=== PATIENT | female | born 1965 | race Caucasian/White ===

== ENCOUNTER → 2016-06-16 11:55 | Outpatient (CLI) | payer MEDICARE, BC ==
[2016-03-29 12:28] VITALS: BMI 34.2
[~2016-06-16 11:55] MED LIST: AMOX TR-K CLV 21 TAB PO; ASMANEX0.24 GM INH; ATIVAN0.5 MG PO; AVINZA60 MG PO; CHERATUSSIN AC473 ML PO; DESERYL100 MG PO; DICLOFENAC SODI50 MG PO; ED-SPAZ0.125 MG PO; EFFEXOR75 MG PO; EPIPEN0.3 MG/0.3 IM; FLEXERIL10 MG PO; NEURONTIN800 MG PO; NORCO 10/325 TA1 TA1 PO; NYSTATIN ORAL SU5 ML PO; OMEPRAZOLE40 MG PO; OXYCODONE HCL10 MG PO; PHENERGAN25 M1 PO; PREDNISONE20 MG PO; PRILOSEC20 MG PO; PROVENTIL HFA6.7 GM INH; RESTORIL22.5 MG PO; SOMA350 MG PO; STERAPRED DS 1210 MG PO; SYMBICORT 16010.2 GM INH; TRIAMCINOLONE A17 GM NASAL; TYLENOL 325 MG325 MG GT; VENTOLIN HFA18 GM INH; VIBRAMYCIN 100100 MG PO; ZOLOFT100 MG PO
== END | disposition home or self-care (01) ==
LOC: D.CT 11:30
DX: J18.9 Pneumonia, unspecified organism (principal)

== ENCOUNTER 2017-01-09 14:46 | Inpatient (IN) | payer MEDICARE, BC ==
[~2017-01-09] VITALS: Ht 172.7 cm; Wt 106.4 kg
[2017-01-10 12:34] VITALS: Ht 172.7 cm; Wt 106.4 kg
[2017-01-15 16:00] VITALS: BP 150/69
[2017-01-15] MEDS ORDERED: FLORAJEN3 CAPS460 MG PO (16:15)
[2017-01-15] MEDS ORDERED: NORVASC5 MG PO (16:20)
[2017-01-15] MEDS ORDERED: SINGULAIR10 MG PO (16:24)
[2017-01-15] MEDS ORDERED: LEVAQUIN750 MG PO (16:24)
[2017-01-15] MEDS ORDERED: MUCINEX DM ER1 EAC1 PO (16:24)
[2017-01-15] MEDS ORDERED: PREDNISONE10 MG PO (16:24)
== END 2017-01-15 18:38 | disposition home or self-care (01) | DRG 191 ==
LOC: OBSVTIME 14:46 → D.M2 14:46
PROVIDERS: ADMIT Family Medicine
PROC: 05HC33Z Insertion of Infusion Device into Left Basilic Vein, Percutaneous Approach (ICD-10-PCS; principal; 2017-01-12)
PROC: B54NZZA Ultrasonography of Left Upper Extremity Veins, Guidance (ICD-10-PCS; 2017-01-12)
DX: J44.1 Chronic obstructive pulmonary disease with (acute) exacerbation (principal); F17.203 Nicotine dependence unspecified, with withdrawal; B37.0 Candidal stomatitis; J45.901 Unspecified asthma with (acute) exacerbation; T38.0X5A Adverse effect of glucocorticoids and synthetic analogues, initial encounter; G89.29 Other chronic pain; K22.4 Dyskinesia of esophagus; K21.9 Gastro-esophageal reflux disease without esophagitis; R73.9 Hyperglycemia, unspecified; B37.3 Candidiasis of vulva and vagina

== ENCOUNTER 2017-09-17 18:54 | Emergency (ER) | payer MEDICARE ==
[2017-01-10 12:34] VITALS: BMI 34.5
[~2017-09-17 18:54] MED LIST changes: +FLORAJEN3 CAPS460 MG PO; +LEVAQUIN750 MG PO; +MUCINEX DM ER1 EAC1 PO; +NORVASC5 MG PO; +PREDNISONE10 MG PO; +SINGULAIR10 MG PO
== END 2017-09-17 20:43 | disposition home or self-care (01) ==
LOC: D.ER 18:54
DX: M54.16 Radiculopathy, lumbar region (principal)

== ENCOUNTER 2017-09-22 15:56 | Inpatient (IN) | payer MEDICARE ==
[~2017-09-22] VITALS: Ht 172.7 cm; Wt 108.9 kg
--- NOTE | ~2017-09-22 | CN ---
PATIENT NAME:SANDRA MYERS MEDICAL RECORD: [id number] : 61 LOCATION:D.MS Ojeda2238 ADMIT DATE: 09/22/17 ACCOUNT: [id number] CONSULTING PHYSICIAN: VICKI AVILEZ MD REFERRING PHYSICIAN: KATI LLAMAS DO DATE OF CONSULTATION: 09/23/2017 CONSULT REQUESTING PHYSICIAN: Kati Llamas DO REASON FOR CONSULTATION: Pneumonia, acute exacerbation of COPD, and asthma. HISTORY OF PRESENT ILLNESS: Ms. Myers is a 52-year-old female very well known to our service. The patient is sick for the last 2-3 days. She has worsening shortness of breath, came into the ER, found out the patient had pneumonia in right lower lobe. She is also having cough with greenish color sputum production. She hears herself wheezing. She is also having fever. REVIEW OF THE SYSTEMS: Mainly in the history of present illness. PAST MEDICAL HISTORY: 1. Asthma as a child. 2. COPD. 3. Dyspnea. 4. History of gastritis. 5. Depression. 6. History of recurrent bronchitis. The workup in the past was negative. PAST SURGICAL HISTORY: 1. She had T&A. 2. Hysterectomy. 3. Right wrist surgery. 4. Tendon release surgery. ALLERGIES: There are no known drug allergies. MEDICATIONS: Cinnamon was reviewed. PERSONAL AND SOCIAL HISTORY: The patient is an ex-smoker. She is nondrinker. FAMILY HISTORY: Noncontributory. PHYSICAL EXAMINATION: GENERAL: Now, the patient is lying comfortably in bed. She is not in acute distress. VITAL SIGNS: The pulse ox is 96% on nasal cannula oxygen. HEENT: Conjunctivae are pink. Sclerae are not icteric. NECK: Neck is supple. No JVD. CHEST: There is prolonged expiration with wheezing. There is a crackle at the right base. HEART: Rhythm regular. Normal sound. No murmur. ABDOMEN: Abdomen is soft. Bowel sounds present. No hepatosplenomegaly. RECTAL: Deferred. EXTREMITIES: No cyanosis. No clubbing. No pedal edema. SKIN: The skin is warm. Normal turgor. CENTRAL NERVOUS SYSTEM: The patient is awake and alert. There is no obvious CONSULT REPORT [id number] SANDRA MYERS cranial nerve abnormality. The gait was not tested. CHEST RADIOGRAPH: On 09/22/2017, there is patchy opacity in the infrahilar region and the lung bases. OTHER LABORATORY DATA: CBC; WBC 9.9, hemoglobin 14.5, hematocrit 42, and platelet count is 219. Chemistry; sodium 142, potassium 4.2, BUN is 15, creatinine is 1.1, glucose 232. IMPRESSION: 1. Acute exacerbation of COPD. 2. Acute hypoxic respiratory failure. 3. Pneumonia, right lower lobe. 4. Asthma-COPD overlap syndrome. 5. Ex-smoker. RECOMMENDATION: 1. Continue supplemental oxygen. 2. Albuterol and ipratropium nebulizer q. 4 hourly, albuterol nebulizer q. 2 hourly p.r.n. Start Brovana and budesonide nebulizer. Adjust the dose of methylprednisolone IV. Continue Rocephin and Zithromax IV. 3. Singulair 10 mg daily. 4. Mucinex. 5. I will check the CT scan of the chest to rule out any obstructive cause for pneumonia. Dr. Llamas, thank you for involving me in the care of Ms. Myers. TRANSINT:[id number] Voice Confirmation ID: [id number] DOCUMENT ID: [id number] VICKI AVILEZ MD at 1806 CC: LEIF CUNNINGHAM DO [id number] DICTATION DATE: 09/23/17 1301 WEBSITE PROJECT MANAGER: 09/23/17 1325 DIS IN 09/25/17 [address] [place] [address]
[2017-09-22 16:49] LABS: BASOPHILS 0.6 % (0-2); EOSINOPHILS 3.5 % (0-7); HEMATOCRIT 43.4 % (36.0-48.0); IMMATURE GRANULOCYTES 0.4 % (0-5); MCH 31.3 pg (26.0-34.0); MCHC 34.6 g/dL (31.0-37.0); MCV 90.6 fL (80.0-100.0); MEAN PLATELET VOLUME 10.8 fL (7.4-10.4); MONOCYTES 5.5 % (2-11); PLATELET COUNT 230 10x3/uL (130-400); RBC 4.79 10x6/uL (4.00-5.40); RDW 13.5 % (11.5-14.5)
[2017-09-22 17:08] LABS: ALBUMIN 3.8 g/dL (3.4-5.0); BILIRUBIN - TOTAL 0.31 mg/dL (0.2-1.3); CALCIUM 9.1 mg/dL (8.5-10.1); CARBON DIOXIDE 24.2 mmol/L (21.0-32.0); CREATININE - SERUM 1.1 mg/dL (0.6-1.3); PROTEIN - SERUM 7.3 g/dL (6.4-8.2)
[2017-09-22 17:14] LABS: ANION GAP 15.6 mmol/L (8-16); POTASSIUM - SERUM 3.8 mmol/L (3.5-5.1)
[2017-09-22 17:41] LABS: APPEARANCE CLEAR (CLEAR); BILIRUBIN NEGATIVE (NEGATIVE); COLOR YELLOW (YELLOW); GLUCOSE 1000 mg/dL (NEGATIVE); KETONE NEGATIVE (NEGATIVE); NITRITE NEGATIVE (NEGATIVE); PROTEIN NEGATIVE (NEGATIVE); UROBILINOGEN NORMAL (NORMAL)
[2017-09-22 17:42] LABS: BACTERIA FEW /hpf (NONE SEEN); EPITHELIAL CELLS OCC /hpf (0-5); RED CELLS - URINE OCC /hpf (0-5); WHITE CELLS - URINE 0-5 /hpf (0-5)
[2017-09-23 04:45] LABS: BASOPHILS 0.1 % (0-2); EOSINOPHILS 0 % (0-7); HEMOGLOBIN 14.5 g/dL (12-16); IMMATURE GRANULOCYTES 0.4 % (0-5); MCH 31.2 pg (26.0-34.0); MCHC 34.5 g/dL (31.0-37.0); MCV 90.3 fL (80.0-100.0); MEAN PLATELET VOLUME 10.9 fL (7.4-10.4); MONOCYTES 0.9 % (2-11); NEUTROPHILS 85.6 % (40-80); PLATELET COUNT 219 10x3/uL (130-400); RBC 4.65 10x6/uL (4.00-5.40); RDW 13.3 % (11.5-14.5); WBC 9.9 10x3/uL (4.8-10.8)
[2017-09-23 04:57] LABS: ALBUMIN 3.6 g/dL (3.4-5.0); BILIRUBIN - TOTAL 0.22 mg/dL (0.2-1.3); CALCIUM 9.4 mg/dL (8.5-10.1); CARBON DIOXIDE 25.2 mmol/L (21.0-32.0); CREATININE - SERUM 1.1 mg/dL (0.6-1.3); POTASSIUM - SERUM 4.2 mmol/L (3.5-5.1); PROTEIN - SERUM 7.1 g/dL (6.4-8.2)
[2017-09-24 02:11] VITALS: BP 118/62; BMI 36.5
[2017-09-24 04:00] VITALS: BP 112/64
[2017-09-24 05:52] LABS: BASOPHILS 0.1 % (0-2); EOSINOPHILS 0 % (0-7); HEMATOCRIT 41.5 % (36.0-48.0); IMMATURE GRANULOCYTES 0.3 % (0-5); LYMPHOCYTES 11.7 % (15-50); MCHC 33.7 g/dL (31.0-37.0); MCV 91.8 fL (80.0-100.0); MEAN PLATELET VOLUME 10.8 fL (7.4-10.4); MONOCYTES 2.5 % (2-11); NEUTROPHILS 85.4 % (40-80); PLATELET COUNT 251 10x3/uL (130-400); RBC 4.52 10x6/uL (4.00-5.40); RDW 13.7 % (11.5-14.5)
[2017-09-24 06:00] LABS: WBC 14.8 10x3/uL (4.8-10.8)
[2017-09-24 06:23] LABS: ALBUMIN 3.7 g/dL (3.4-5.0); ANION GAP 14.4 mmol/L (8-16); BILIRUBIN - TOTAL 0.23 mg/dL (0.2-1.3); CALCIUM 8.9 mg/dL (8.5-10.1); CARBON DIOXIDE 27.1 mmol/L (21.0-32.0); CREATININE - SERUM 1.1 mg/dL (0.6-1.3); POTASSIUM - SERUM 4.5 mmol/L (3.5-5.1); PROTEIN - SERUM 7.2 g/dL (6.4-8.2)
[2017-09-24 08:35] VITALS: BP 157/75
[2017-09-24 12:49] VITALS: BP 148/64
[2017-09-24 14:04] VITALS: Ht 172.7 cm; Wt 108.9 kg
[2017-09-24 15:44] VITALS: BP 123/51
[2017-09-24 19:42] VITALS: BP 106/56
[2017-09-25 04:30] VITALS: BP 113/50
[2017-09-25 05:53] LABS: BASOPHILS 0 % (0-2); EOSINOPHILS 0 % (0-7); HEMATOCRIT 40.2 % (36.0-48.0); HEMOGLOBIN 13.6 g/dL (12-16); IMMATURE GRANULOCYTES 1.1 % (0-5); LYMPHOCYTES 11.2 % (15-50); MCHC 33.8 g/dL (31.0-37.0); MCV 91.6 fL (80.0-100.0); MEAN PLATELET VOLUME 10.7 fL (7.4-10.4); MONOCYTES 5.3 % (2-11); NEUTROPHILS 82.4 % (40-80); PLATELET COUNT 235 10x3/uL (130-400); RBC 4.39 10x6/uL (4.00-5.40); RDW 13.5 % (11.5-14.5); WBC 12.8 10x3/uL (4.8-10.8)
[2017-09-25 06:52] LABS: ALBUMIN 3.7 g/dL (3.4-5.0); ANION GAP 11.5 mmol/L (8-16); BILIRUBIN - TOTAL 0.14 mg/dL (0.2-1.3); CALCIUM 9.1 mg/dL (8.5-10.1); CREATININE - SERUM 1.1 mg/dL (0.6-1.3); POTASSIUM - SERUM 4.5 mmol/L (3.5-5.1); PROTEIN - SERUM 6.6 g/dL (6.4-8.2)
[2017-09-25 08:44] VITALS: BP 140/75
[2017-09-25 12:57] VITALS: BP 139/80
[2017-09-25] MEDS ORDERED: DIFLUCAN100 MG PO (14:17)
[2017-09-25] MEDS ORDERED: ZITHROMAX500 MG PO (14:21)
[2017-09-25] MEDS ORDERED: OMNICEF300 MG PO (14:22)
[2017-09-25] MEDS ORDERED: PREDNISONE10 MG PO (14:23)
[2017-09-25 16:54] VITALS: BP 101/51
== END 2017-09-25 16:30 | disposition home or self-care (01) | DRG 193 ==
LOC: D.ER 15:56 → D.EDHOLD 18:07 → D.MS 18:07
PROVIDERS: Family Medicine; Physician Assistant Medical
DX: J18.9 Pneumonia, unspecified organism (principal); J96.01 Acute respiratory failure with hypoxia; J44.0 Chronic obstructive pulmonary disease with (acute) lower respiratory infection; J44.1 Chronic obstructive pulmonary disease with (acute) exacerbation; M35.1 Other overlap syndromes; R73.9 Hyperglycemia, unspecified; K21.9 Gastro-esophageal reflux disease without esophagitis; G89.29 Other chronic pain

== ENCOUNTER 2017-11-02 13:15 | Inpatient (IN) | payer MEDICARE ==
[~2017-11-02] VITALS: Ht 175.3 cm; Wt 109.3 kg
[2017-11-02] VITALS (9 sets, daily range): BP systolic 96–127; BP diastolic 55–89; BMI 35.8
--- NOTE | ~2017-11-02 | OP ---
PATIENT NAME: SANDRA LYNNE MEDICAL RECORD: [id number] :61 LOCATION:D.MS Ojeda2224 ADMISSION DATE:11/02/17 SURGEON: VAMSI DELGADO MD DATE OF OPERATION: 11/05/2017 PREOPERATIVE DIAGNOSES: Left proximal humerus fracture -- greater tuberosity avulsion and valgus impacted humeral head. POSTOPERATIVE DIAGNOSES: Left proximal humerus fracture -- greater tuberosity avulsion and valgus impacted humeral head. PROCEDURE: Open reduction internal fixation of the above. SURGEON: Vamsi Delgado MD ANESTHESIA: General. INTRAOPERATIVE COMPLICATIONS: None. SUMMARY OF PATHOLOGIC FINDINGS: The patient did have a valgus impaction with superior displacement of the greater tuberosity. This was all fixed under fluoroscopic control and stabilized with internal fixation. Internal fixation used is the Michael periarticular VariAx system. OPERATIVE SUMMARY IN DETAIL: After obtaining the appropriate preoperative orthopedic surgery consent as well as anesthetic consultation, evaluation and clearance, the patient was brought to the operating room and placed on the operating room table in supine position. After general laryngeal mask airway was administered, the patient was placed in beach chair position. All pressure points were well padded. She was held firmly to the operating table using vacuum pack suction system. Left upper extremity and shoulder were then prepped and draped in routine sterile fashion. The arm was held in the Trimano arm holding device. Planned incision was drawn in the deltopectoral interval. Deltopectoral interval was taken down. The cephalic vein was identified and protected throughout the case. This was then dissected down to clavipectoral fascia. Deltoid was then gently retracted laterally. The fracture was identified. At this point, by and large part, without disturbing the periosteum, the fracture was reduced as seen on AP and lateral planes. Provisional 6.2 pin was put in for provisional fixation. The Michael periarticular plate was then put into place and the fracture was fixed with a combination of both compression and locking screws. Serial and sequential drill and fill technique was utilized. Final radiographs were taken and submitted on AP and lateral planes for radiologist review. Further irrigation was then followed by closure of the deltopectoral interval with #1 Vicryl followed by 2-0 Vicryl and skin crista. Sterile dressings were applied. The patient was awakened and taken to the recovery room in stable condition. All final needle and sponge counts were correct. TRANSINT:[id number] Voice Confirmation ID: [id number] DOCUMENT ID: [id number] 11/09/2017 Edited to correct date of service, dmm. OPERATIVE REPORT [id number] SANDRA LYNNE MD, VAMSI GRACIA at 1606 CC: [id number] DICTATION DATE: 11/06/17 1132 ADVERTISING PRODUCTION MANAGER: 11/06/17 1147 DIS IN 11/07/17 [address] [place] [address]
[~2017-11-02 13:15] MED LIST changes: +DIFLUCAN100 MG PO; +OMNICEF300 MG PO; +ZITHROMAX500 MG PO
[2017-11-02] MEDS ORDERED: HYDROCODONE-APA1 TAB PO (13:21)
[2017-11-02 17:01] LABS: BASOPHILS 0.4 % (0-2); EOSINOPHILS 1.2 % (0-7); HEMATOCRIT 42.2 % (36.0-48.0); HEMOGLOBIN 14.5 g/dL (12-16); IMMATURE GRANULOCYTES 0.6 % (0-5); LYMPHOCYTES 22.4 % (15-50); MCH 31.6 pg (26.0-34.0); MCHC 34.4 g/dL (31.0-37.0); MCV 91.9 fL (80.0-100.0); MEAN PLATELET VOLUME 10.8 fL (7.4-10.4); MONOCYTES 8.7 % (2-11); NEUTROPHILS 66.7 % (40-80); PLATELET COUNT 200 10x3/uL (130-400); RBC 4.59 10x6/uL (4.00-5.40); RDW 13.6 % (11.5-14.5); WBC 11.6 10x3/uL (4.8-10.8)
[2017-11-02 17:52] LABS: APTT 20.2 SECONDS (22.8-39.4); INR 0.92 (0.85-1.17)
[2017-11-02 18:13] LABS: ALBUMIN 3.9 g/dL (3.4-5.0); ALKALINE PHOSPHATASE 88 U/L (46-116); ALT (SGPT) 44 U/L (10-68); BILIRUBIN - TOTAL 0.33 mg/dL (0.2-1.3); CALC OSMOLALITY 281 mosm/kg (275-300); CALCIUM 9.1 mg/dL (8.5-10.1); CARBON DIOXIDE 28.7 mmol/L (21.0-32.0); CHLORIDE - SERUM 105 mmol/L (98-107); CREATININE - SERUM 0.5 mg/dL (0.6-1.3); SODIUM 141 mmol/L (136-145); UREA NITROGEN 15 mg/dL (7-18); eGFR NON AFRICAN AMERICAN > 90 mL/min (90-120)
[2017-11-02 18:17] LABS: GLUCOSE 107 mg/dL (74-106)
[2017-11-03 00:41] VITALS: BP 119/77
[2017-11-03 04:28] VITALS: BP 120/57
[2017-11-03 07:30] LABS: ALBUMIN 3.4 g/dL (3.4-5.0); ANION GAP 13.6 mmol/L (8-16); BILIRUBIN - TOTAL 0.2 mg/dL (0.2-1.3); CALCIUM 8.4 mg/dL (8.5-10.1); CARBON DIOXIDE 26.9 mmol/L (21.0-32.0); POTASSIUM - SERUM 4.5 mmol/L (3.5-5.1); PROTEIN - SERUM 6.1 g/dL (6.4-8.2)
[2017-11-03 07:32] LABS: CREATININE - SERUM 0.9 mg/dL (0.6-1.3)
[2017-11-03 07:42] LABS: BASOPHILS 0.3 % (0-2); EOSINOPHILS 1.6 % (0-7); HEMATOCRIT 39.5 % (36.0-48.0); HEMOGLOBIN 13.3 g/dL (12-16); IMMATURE GRANULOCYTES 0.3 % (0-5); MCH 31.1 pg (26.0-34.0); MCHC 33.7 g/dL (31.0-37.0); MCV 92.3 fL (80.0-100.0); MEAN PLATELET VOLUME 10.4 fL (7.4-10.4); MONOCYTES 9.6 % (2-11); NEUTROPHILS 60.2 % (40-80); PLATELET COUNT 198 10x3/uL (130-400); RBC 4.28 10x6/uL (4.00-5.40); RDW 13.7 % (11.5-14.5); WBC 9.7 10x3/uL (4.8-10.8)
[2017-11-03 08:08] VITALS: BP 117/71
[2017-11-03 10:52] VITALS: Ht 175.3 cm; Wt 109.3 kg
[2017-11-03 15:15] VITALS: BP 117/72
[2017-11-03 20:25] VITALS: BP 107/66
[2017-11-04 05:48] VITALS: BP 136/71
[2017-11-04 06:54] LABS: BASOPHILS 0.4 % (0-2); EOSINOPHILS 1.7 % (0-7); HEMATOCRIT 37.8 % (36.0-48.0); HEMOGLOBIN 12.4 g/dL (12-16); IMMATURE GRANULOCYTES 0.4 % (0-5); LYMPHOCYTES 20.6 % (15-50); MCH 30.7 pg (26.0-34.0); MCHC 32.8 g/dL (31.0-37.0); MCV 93.6 fL (80.0-100.0); MEAN PLATELET VOLUME 10.4 fL (7.4-10.4); NEUTROPHILS 67.9 % (40-80); PLATELET COUNT 165 10x3/uL (130-400); RBC 4.04 10x6/uL (4.00-5.40); RDW 13.8 % (11.5-14.5)
[2017-11-04 07:44] LABS: ALKALINE PHOSPHATASE 66 U/L (46-116); ALT (SGPT) 37 U/L (10-68); BILIRUBIN - TOTAL 0.32 mg/dL (0.2-1.3); CALC OSMOLALITY 280 mosm/kg (275-300); CARBON DIOXIDE 30.6 mmol/L (21.0-32.0); CHLORIDE - SERUM 106 mmol/L (98-107); CREATININE - SERUM 0.8 mg/dL (0.6-1.3); GLUCOSE 117 mg/dL (74-106); POTASSIUM - SERUM 4.3 mmol/L (3.5-5.1); PROTEIN - SERUM 6.1 g/dL (6.4-8.2); SODIUM 140 mmol/L (136-145); UREA NITROGEN 15 mg/dL (7-18); eGFR NON AFRICAN AMERICAN 79 mL/min (90-120)
[2017-11-04 07:46] VITALS: BP 108/77
[2017-11-04 11:38] VITALS: BP 113/79
[2017-11-04 15:43] VITALS: BP 134/73
[2017-11-04 20:00] VITALS: BP 138/84
[2017-11-05] VITALS: BP 124/76
[2017-11-05 04:00] VITALS: BP 131/66
[2017-11-05 05:24] LABS: BASOPHILS 0.2 % (0-2); EOSINOPHILS 0.8 % (0-7); HEMATOCRIT 38.5 % (36.0-48.0); HEMOGLOBIN 12.9 g/dL (12-16); IMMATURE GRANULOCYTES 0.3 % (0-5); LYMPHOCYTES 11.1 % (15-50); MCH 30.9 pg (26.0-34.0); MCHC 33.5 g/dL (31.0-37.0); MCV 92.3 fL (80.0-100.0); MEAN PLATELET VOLUME 10.3 fL (7.4-10.4); MONOCYTES 5.5 % (2-11); NEUTROPHILS 82.1 % (40-80); PLATELET COUNT 178 10x3/uL (130-400); RBC 4.17 10x6/uL (4.00-5.40); RDW 13.7 % (11.5-14.5)
[2017-11-05 05:33] LABS: WBC 11.1 10x3/uL (4.8-10.8)
[2017-11-05 05:42] LABS: ALBUMIN 3.3 g/dL (3.4-5.0); ALKALINE PHOSPHATASE 67 U/L (46-116); ALT (SGPT) 34 U/L (10-68); BILIRUBIN - TOTAL 0.36 mg/dL (0.2-1.3); CALC OSMOLALITY 272 mosm/kg (275-300); CALCIUM 8.9 mg/dL (8.5-10.1); CARBON DIOXIDE 30.2 mmol/L (21.0-32.0); CHLORIDE - SERUM 101 mmol/L (98-107); CREATININE - SERUM 0.7 mg/dL (0.6-1.3); GLUCOSE 133 mg/dL (74-106); POTASSIUM - SERUM 4.1 mmol/L (3.5-5.1); PROTEIN - SERUM 6.6 g/dL (6.4-8.2); SODIUM 136 mmol/L (136-145); eGFR NON AFRICAN AMERICAN > 90 mL/min (90-120)
[2017-11-05 05:45] LABS: UREA NITROGEN 10 mg/dL (7-18)
[2017-11-05 08:42] VITALS: BP 137/777
[2017-11-05 11:09] VITALS: BP 144/77
[2017-11-05 18:23] VITALS: BP 147/64
[2017-11-06] VITALS (7 sets, daily range): BP systolic 110–153; BP diastolic 56–98
[2017-11-06 04:44] LABS: APPEARANCE CLEAR (CLEAR); BILIRUBIN NEGATIVE (NEGATIVE); COLOR YELLOW (YELLOW); GLUCOSE NEGATIVE (NEGATIVE); KETONE NEGATIVE (NEGATIVE); NITRITE NEGATIVE (NEGATIVE); PROTEIN NEGATIVE (NEGATIVE); SPECIFIC GRAVITY 1.015 (1.005-1.020); UROBILINOGEN NORMAL (NORMAL)
[2017-11-06 04:52] LABS: BACTERIA FEW /hpf (NONE SEEN); EPITHELIAL CELLS RARE /hpf (0-5); WHITE CELLS - URINE RARE /hpf (0-5)
[2017-11-06 05:52] LABS: BASOPHILS 0.3 % (0-2); HEMATOCRIT 39.7 % (36.0-48.0); IMMATURE GRANULOCYTES 0.4 % (0-5); LYMPHOCYTES 16.8 % (15-50); MCH 30.8 pg (26.0-34.0); MCHC 32.7 g/dL (31.0-37.0); MCV 94.1 fL (80.0-100.0); MEAN PLATELET VOLUME 10.5 fL (7.4-10.4); MONOCYTES 11.7 % (2-11); NEUTROPHILS 69.8 % (40-80); PLATELET COUNT 172 10x3/uL (130-400); RBC 4.22 10x6/uL (4.00-5.40); RDW 14.1 % (11.5-14.5); WBC 9.2 10x3/uL (4.8-10.8)
[2017-11-06 06:42] LABS: ALBUMIN 3.3 g/dL (3.4-5.0); ALKALINE PHOSPHATASE 70 U/L (46-116); ALT (SGPT) 35 U/L (10-68); CALC OSMOLALITY 275 mosm/kg (275-300); CALCIUM 8.6 mg/dL (8.5-10.1); CHLORIDE - SERUM 100 mmol/L (98-107); CREATININE - SERUM 0.7 mg/dL (0.6-1.3); GLUCOSE 125 mg/dL (74-106); SODIUM 138 mmol/L (136-145); UREA NITROGEN 10 mg/dL (7-18); eGFR NON AFRICAN AMERICAN > 90 mL/min (90-120)
[2017-11-07 03:50] VITALS: BP 95/60
[2017-11-07 05:52] LABS: BASOPHILS 0.1 % (0-2); EOSINOPHILS 1.8 % (0-7); HEMATOCRIT 33.8 % (36.0-48.0); HEMOGLOBIN 11.2 g/dL (12-16); IMMATURE GRANULOCYTES 0.3 % (0-5); LYMPHOCYTES 22.1 % (15-50); MCH 30.9 pg (26.0-34.0); MCHC 33.1 g/dL (31.0-37.0); MCV 93.1 fL (80.0-100.0); MEAN PLATELET VOLUME 10.4 fL (7.4-10.4); MONOCYTES 12.1 % (2-11); NEUTROPHILS 63.6 % (40-80); PLATELET COUNT 154 10x3/uL (130-400); RBC 3.63 10x6/uL (4.00-5.40); RDW 13.8 % (11.5-14.5); WBC 7.6 10x3/uL (4.8-10.8)
[2017-11-07 06:37] LABS: ALBUMIN 2.8 g/dL (3.4-5.0); ALKALINE PHOSPHATASE 49 U/L (46-116); ALT (SGPT) 28 U/L (10-68); BILIRUBIN - TOTAL 0.37 mg/dL (0.2-1.3); CALC OSMOLALITY 275 mosm/kg (275-300); CALCIUM 8.3 mg/dL (8.5-10.1); CARBON DIOXIDE 29.2 mmol/L (21.0-32.0); CHLORIDE - SERUM 103 mmol/L (98-107); CREATININE - SERUM 0.7 mg/dL (0.6-1.3); GLUCOSE 109 mg/dL (74-106); POTASSIUM - SERUM 3.5 mmol/L (3.5-5.1); PROTEIN - SERUM 6.1 g/dL (6.4-8.2); SODIUM 138 mmol/L (136-145); UREA NITROGEN 10 mg/dL (7-18); eGFR NON AFRICAN AMERICAN > 90 mL/min (90-120)
[2017-11-07 06:48] VITALS: BP 104/62
[2017-11-07] MEDS ORDERED: MEPERIDINE HCL50 MG PO (10:16)
== END 2017-11-07 13:06 | disposition home or self-care (01) | DRG 493 ==
LOC: D.ER 13:15 → D.EDHOLD 16:29 → D.MS 16:29
PROVIDERS: Family Medicine
PROC: 05HB33Z Insertion of Infusion Device into Right Basilic Vein, Percutaneous Approach (ICD-10-PCS; principal; 2017-11-02)
PROC: B54MZZA Ultrasonography of Right Upper Extremity Veins, Guidance (ICD-10-PCS; 2017-11-02)
PROC: 0PSD04Z Reposition Left Humeral Head with Internal Fixation Device, Open Approach (ICD-10-PCS; 2017-11-05)
DX: S42.252A Displaced fracture of greater tuberosity of left humerus, initial encounter for closed fracture (principal); F17.203 Nicotine dependence unspecified, with withdrawal; J44.1 Chronic obstructive pulmonary disease with (acute) exacerbation; W01.0XXA Fall on same level from slipping, tripping and stumbling without subsequent striking against object, initial encounter; F41.9 Anxiety disorder, unspecified; K21.9 Gastro-esophageal reflux disease without esophagitis

== ENCOUNTER → 2017-11-27 15:19 | Outpatient (CLI) | payer MEDICARE ==
[2017-11-03 10:52] VITALS: BMI 35.7
[~2017-11-27 15:19] MED LIST changes: +BENZONATATE200 MG PO; +BREO ELLIPTA 21 EACH; +CARDIZEM60 MG PO; +FLUTICASONE PRO16 GM NASAL; +HYDROCODONE-APA1 TAB PO; +INVOKANA100 MG PO; +LYRICA200 MG PO; +MEPERIDINE HCL50 MG PO; +MIRALAX17 GM PO; +ZOFRAN4 MG PO
== END | disposition home or self-care (01) ==
LOC: D.MRI 11-03 07:00
DX: M54.16 Radiculopathy, lumbar region (principal)

== ENCOUNTER 2017-11-28 22:01 | Observation (INO) | payer MEDICARE ==
[~2017-11-28] VITALS: Ht 175.3 cm; Wt 109.1 kg
--- NOTE | ~2017-11-28 | MORECARE ---
CASE MANAGEMENT DISCHARGE SUMMARY PATIENT: SANDRA LYNNE UNIT: [id number] ADM DATE: 11/29/17 AGE: 52 : 61 SEX: F ROOM/BED: D.2237 AUTHOR: CASE, FREIGHT DISPATCHER PHYSICIAN: REFERRING PHYSICIAN: ANNETTE SULTANA MD DATE OF SERVICE: 11/29/17 Discharge Plan Patient Name: SANDRA LYNNE Facility: [facility]:[place] : 1965 Planned Disposition: Home Anticipated Discharge Date: 11/30/17 Discharge Date: Expected LOS: 1 Initial Reviewer: [email or web address] Initial Review Date: 11/30/2017 Generated: 11/30/17 8:32 am Coverage Notice Reviewer: [id number] - Airam Block Notice Issued Date-Time: 11/30/2017 7:27 Notice Type: Medicare Outpatient Observation Notice Notice Delivered To: Patient Relationship to Patient: Self Automatic Toe Laster Name: Delivery Method: HAND - Hand Delivered Maranda Days: Prior Verbal Notification: Recipient Understood Notice: Yes Recipient Signature: Yes Med Rec Note Co-signed by Attending: Coverage Notice Comment: LASHAWN explained, signed, copy given, original placed in MR Patient Name: SANDRA LYNNE Page [phone] All edits/amendments must be made on the electronic document DICTATION DATE: 11/30/17730 CONTRACTING ENGINEER: 11/30/17730 RPT#: [id number] DC DATE: STATUS: ADM IN [address] [place] [address] END OF REPORT
[~2017-11-28 22:01] MED LIST changes: -BENZONATATE200 MG PO; -BREO ELLIPTA 21 EACH; -CARDIZEM60 MG PO; -FLUTICASONE PRO16 GM NASAL; -INVOKANA100 MG PO; -LYRICA200 MG PO; -MIRALAX17 GM PO; -ZOFRAN4 MG PO
[2017-11-28 22:43] LABS: BASOPHILS 0.2 % (0-2); EOSINOPHILS 0.8 % (0-7); HEMATOCRIT 43.7 % (36.0-48.0); HEMOGLOBIN 14.6 g/dL (12-16); IMMATURE GRANULOCYTES 0.2 % (0-5); LYMPHOCYTES 7.1 % (15-50); MCH 30.9 pg (26.0-34.0); MCHC 33.4 g/dL (31.0-37.0); MCV 92.4 fL (80.0-100.0); MEAN PLATELET VOLUME 10.2 fL (7.4-10.4); MONOCYTES 4.4 % (2-11); NEUTROPHILS 87.3 % (40-80); PLATELET COUNT 167 10x3/uL (130-400); RBC 4.73 10x6/uL (4.00-5.40); RDW 13.7 % (11.5-14.5); WBC 10.7 10x3/uL (4.8-10.8)
[2017-11-28 23:02] LABS: ALBUMIN 3.7 g/dL (3.4-5.0); ANION GAP 13.3 mmol/L (8-16); BILIRUBIN - TOTAL 0.41 mg/dL (0.2-1.3); CALCIUM 8.9 mg/dL (8.5-10.1); CARBON DIOXIDE 27.8 mmol/L (21.0-32.0); CREATININE - SERUM 0.9 mg/dL (0.6-1.3); POTASSIUM - SERUM 4.1 mmol/L (3.5-5.1); PROTEIN - SERUM 7.2 g/dL (6.4-8.2)
[2017-11-28 23:27] LABS: APPEARANCE CLEAR (CLEAR); BILIRUBIN NEGATIVE (NEGATIVE); COLOR YELLOW (YELLOW); GLUCOSE 250 mg/dL (NEGATIVE); KETONE NEGATIVE (NEGATIVE); NITRITE NEGATIVE (NEGATIVE); PROTEIN NEGATIVE (NEGATIVE); SPECIFIC GRAVITY 1.005 (1.005-1.020); UROBILINOGEN NORMAL (NORMAL)
[2017-11-29] VITALS (7 sets, daily range): BP systolic 106–174; BP diastolic 56–98; Ht 175.3 cm; Wt 109.1 kg
[2017-11-29] MEDS ORDERED: HYDROCODONE-APA1 TAB PO (01:20)
[2017-11-29] MEDS ORDERED: ZOFRAN4 MG PO (01:20)
[2017-11-29] MEDS ORDERED: INVOKANA100 MG PO (06:15)
[2017-11-29] MEDS ORDERED: LYRICA200 MG PO (06:15)
[2017-11-29] MEDS ORDERED: BREO ELLIPTA 21 EACH (06:15)
[2017-11-29] MEDS ORDERED: FLUTICASONE PRO16 GM NASAL (06:16)
[2017-11-30 00:30] VITALS: BP 144/84
[2017-11-30 04:30] VITALS: BP 154/82
[2017-11-30 06:43] LABS: BASOPHILS 0.3 % (0-2); EOSINOPHILS 7.2 % (0-7); HEMATOCRIT 36.1 % (36.0-48.0); HEMOGLOBIN 11.7 g/dL (12-16); LYMPHOCYTES 40.3 % (15-50); MCH 30.6 pg (26.0-34.0); MCHC 32.4 g/dL (31.0-37.0); MEAN PLATELET VOLUME 10.1 fL (7.4-10.4); MONOCYTES 12.7 % (2-11); NEUTROPHILS 39.5 % (40-80); RBC 3.82 10x6/uL (4.00-5.40); RDW 14.2 % (11.5-14.5)
[2017-11-30 06:54] LABS: MCV 94.5 fL (80.0-100.0); PLATELET COUNT 115 10x3/uL (130-400); WBC 3.5 10x3/uL (4.8-10.8)
[2017-11-30 06:55] LABS: ALBUMIN 2.8 g/dL (3.4-5.0); ALKALINE PHOSPHATASE 80 U/L (46-116); BILIRUBIN - TOTAL 0.17 mg/dL (0.2-1.3); CALCIUM 7.9 mg/dL (8.5-10.1); CARBON DIOXIDE 33.8 mmol/L (21.0-32.0); CHLORIDE - SERUM 108 mmol/L (98-107); CREATININE - SERUM 0.7 mg/dL (0.6-1.3); POTASSIUM - SERUM 3.8 mmol/L (3.5-5.1); PROTEIN - SERUM 5.4 g/dL (6.4-8.2); SODIUM 146 mmol/L (136-145); eGFR NON AFRICAN AMERICAN > 90 mL/min (90-120)
[2017-11-30 06:56] LABS: ALT (SGPT) 44 U/L (10-68); CALC OSMOLALITY 289 mosm/kg (275-300); GLUCOSE 121 mg/dL (74-106); UREA NITROGEN 6 mg/dL (7-18)
[2017-11-30 08:13] VITALS: BP 161/96
[2017-11-30] MEDS ORDERED: MIRALAX17 GM PO (11:31)
== END 2017-11-30 12:49 | disposition home or self-care (01) ==
LOC: D.ER 22:01 → OBSVTIME 11-29 05:12 → D.MS 11-29 05:12
PROVIDERS: Emergency Medicine; Internal Medicine Nephrology
DX: A08.4 Viral intestinal infection, unspecified (principal); E86.0 Dehydration; I10 Essential (primary) hypertension; G89.29 Other chronic pain; J44.9 Chronic obstructive pulmonary disease, unspecified; E11.9 Type 2 diabetes mellitus without complications; K21.9 Gastro-esophageal reflux disease without esophagitis; K76.0 Fatty (change of) liver, not elsewhere classified; E66.01 Morbid (severe) obesity due to excess calories; Z87.891 Personal history of nicotine dependence; F32.9 Major depressive disorder, single episode, unspecified

== ENCOUNTER 2018-01-06 12:28 | Inpatient (IN) | payer MEDICARE ==
[~2018-01-06] VITALS: Ht 175.3 cm; Wt 112.9 kg
[~2018-01-06 12:28] MED LIST changes: +BREO ELLIPTA 21 EACH; +FLUTICASONE PRO16 GM NASAL; +INVOKANA100 MG PO; +LYRICA200 MG PO; +MIRALAX17 GM PO; +ZOFRAN4 MG PO
[2018-01-06 15:36] LABS: BASOPHILS 0.5 % (0-2); EOSINOPHILS 5.4 % (0-7); HEMATOCRIT 40.5 % (36.0-48.0); HEMOGLOBIN 13.6 g/dL (12-16); IMMATURE GRANULOCYTES 0.4 % (0-5); LYMPHOCYTES 40.5 % (15-50); MCH 31.2 pg (26.0-34.0); MCHC 33.6 g/dL (31.0-37.0); MCV 92.9 fL (80.0-100.0); MEAN PLATELET VOLUME 10.2 fL (7.4-10.4); MONOCYTES 6.3 % (2-11); NEUTROPHILS 46.9 % (40-80); RBC 4.36 10x6/uL (4.00-5.40); RDW 14.5 % (11.5-14.5); WBC 7.9 10x3/uL (4.8-10.8)
[2018-01-06 15:37] LABS: PLATELET COUNT 233 10x3/uL (130-400)
[2018-01-06 15:53] LABS: ALBUMIN 3.4 g/dL (3.4-5.0); ANION GAP 13.7 mmol/L (8-16); BILIRUBIN - TOTAL 0.14 mg/dL (0.2-1.3); CALCIUM 8.1 mg/dL (8.5-10.1); CARBON DIOXIDE 26.2 mmol/L (21.0-32.0); POTASSIUM - SERUM 3.9 mmol/L (3.5-5.1); PROTEIN - SERUM 6.3 g/dL (6.4-8.2)
[2018-01-06 16:24] VITALS: BP 138/69
[2018-01-06 19:55] VITALS: BP 128/53; BMI 37.0
[2018-01-06 20:12] VITALS: BP 138/83
[2018-01-07 05:21] VITALS: BP 132/81
[2018-01-07 07:49] VITALS: BP 112/75
[2018-01-07 10:42] VITALS: BP 126/67
[2018-01-07 15:42] VITALS: BP 155/83
[2018-01-07 20:00] VITALS: BP 113/68
[2018-01-07 23:59] VITALS: BP 146/81
[2018-01-08 04:00] VITALS: BP 135/66
[2018-01-08 04:38] LABS: BASOPHILS 0.1 % (0-2); EOSINOPHILS 0 % (0-7); HEMATOCRIT 40.8 % (36.0-48.0); HEMOGLOBIN 13.9 g/dL (12-16); IMMATURE GRANULOCYTES 0.4 % (0-5); LYMPHOCYTES 10.2 % (15-50); MCH 31.3 pg (26.0-34.0); MCHC 34.1 g/dL (31.0-37.0); MCV 91.9 fL (80.0-100.0); MEAN PLATELET VOLUME 10.5 fL (7.4-10.4); MONOCYTES 4.7 % (2-11); NEUTROPHILS 84.6 % (40-80); PLATELET COUNT 244 10x3/uL (130-400); RBC 4.44 10x6/uL (4.00-5.40); RDW 14.2 % (11.5-14.5)
[2018-01-08 04:46] LABS: WBC 14.3 10x3/uL (4.8-10.8)
[2018-01-08 05:03] LABS: ANION GAP 13.3 mmol/L (8-16); CALCIUM 8.7 mg/dL (8.5-10.1); CARBON DIOXIDE 27.4 mmol/L (21.0-32.0); T4 THYROXIN - FREE 0.82 ng/dL (0.76-1.46); THYROID STIMULATING HORMONE 0.23 uIU/mL (0.36-3.74)
[2018-01-08 05:04] LABS: POTASSIUM - SERUM 4.7 mmol/L (3.5-5.1)
[2018-01-08 08:24] VITALS: BP 144/110
[2018-01-08 13:46] VITALS: BP 121/67
[2018-01-08 17:47] LABS: CKMB 1.7 U/L (0.0-3.6); CREATINE KINASE 100 UL (21-215); TROPONIN-I < 0.017 ng/mL (0.000-0.060)
[2018-01-08 20:00] VITALS: BP 139/78
[2018-01-08 22:59] LABS: CKMB 1.4 U/L (0.0-3.6); CREATINE KINASE 99 UL (21-215); TROPONIN-I < 0.017 ng/mL (0.000-0.060)
[2018-01-09] VITALS: BP 119/68
[2018-01-09 04:00] VITALS: BP 138/59
[2018-01-09 05:57] LABS: ANION GAP 14.1 mmol/L (8-16); CALCIUM 8.7 mg/dL (8.5-10.1); CARBON DIOXIDE 24.7 mmol/L (21.0-32.0); POTASSIUM - SERUM 4.8 mmol/L (3.5-5.1)
[2018-01-09 05:59] LABS: BASOPHILS 0.1 % (0-2); EOSINOPHILS 0 % (0-7); HEMATOCRIT 43.1 % (36.0-48.0); HEMOGLOBIN 14.5 g/dL (12-16); IMMATURE GRANULOCYTES 0.7 % (0-5); LYMPHOCYTES 10.4 % (15-50); MCH 31.4 pg (26.0-34.0); MCHC 33.6 g/dL (31.0-37.0); MCV 93.3 fL (80.0-100.0); MEAN PLATELET VOLUME 10.6 fL (7.4-10.4); NEUTROPHILS 83.8 % (40-80); PLATELET COUNT 292 10x3/uL (130-400); RBC 4.62 10x6/uL (4.00-5.40); RDW 14.7 % (11.5-14.5); WBC 15.4 10x3/uL (4.8-10.8)
[2018-01-09 06:16] LABS: CKMB 1.5 U/L (0.0-3.6); CREATINE KINASE 75 UL (21-215)
[2018-01-09 09:35] VITALS: BP 117/81
[2018-01-09 11:55] VITALS: BP 126/64
[2018-01-09 15:34] VITALS: BP 134/68
[2018-01-10 04:00] VITALS: BP 137/68
[2018-01-10 06:46] LABS: BASOPHILS 0.1 % (0-2); EOSINOPHILS 0 % (0-7); HEMATOCRIT 40.7 % (36.0-48.0); HEMOGLOBIN 13.6 g/dL (12-16); IMMATURE GRANULOCYTES 1.5 % (0-5); LYMPHOCYTES 12.3 % (15-50); MCH 31.1 pg (26.0-34.0); MCHC 33.4 g/dL (31.0-37.0); MCV 92.9 fL (80.0-100.0); MEAN PLATELET VOLUME 10.7 fL (7.4-10.4); MONOCYTES 4.7 % (2-11); NEUTROPHILS 81.4 % (40-80); PLATELET COUNT 275 10x3/uL (130-400); RBC 4.38 10x6/uL (4.00-5.40); RDW 14.2 % (11.5-14.5); WBC 11.6 10x3/uL (4.8-10.8)
[2018-01-10 07:05] LABS: CALC OSMOLALITY 292 mosm/kg (275-300); CALCIUM 8.3 mg/dL (8.5-10.1); CARBON DIOXIDE 27.6 mmol/L (21.0-32.0); CHLORIDE - SERUM 106 mmol/L (98-107); GLUCOSE 255 mg/dL (74-106); POTASSIUM - SERUM 4.1 mmol/L (3.5-5.1); SODIUM 140 mmol/L (136-145); UREA NITROGEN 27 mg/dL (7-18)
[2018-01-10 07:17] LABS: CREATININE - SERUM 0.7 mg/dL (0.6-1.3); eGFR NON AFRICAN AMERICAN > 90 mL/min (90-120)
[2018-01-10 08:58] VITALS: BP 158/76
[2018-01-10 11:37] VITALS: BP 160/96
[2018-01-10 16:02] VITALS: BP 150/83
[2018-01-10 20:30] VITALS: BP 188/105
[2018-01-11 04:30] VITALS: BP 158/80
[2018-01-11 06:29] LABS: BASOPHILS 0.1 % (0-2); EOSINOPHILS 0.1 % (0-7); HEMATOCRIT 41.3 % (36.0-48.0); HEMOGLOBIN 14.1 g/dL (12-16); IMMATURE GRANULOCYTES 2.2 % (0-5); LYMPHOCYTES 14.5 % (15-50); MCH 31.1 pg (26.0-34.0); MCHC 34.1 g/dL (31.0-37.0); MEAN PLATELET VOLUME 10.7 fL (7.4-10.4); NEUTROPHILS 78.1 % (40-80); PLATELET COUNT 273 10x3/uL (130-400); RBC 4.54 10x6/uL (4.00-5.40); RDW 13.9 % (11.5-14.5); WBC 10.8 10x3/uL (4.8-10.8)
[2018-01-11 06:50] LABS: CALCIUM 8.3 mg/dL (8.5-10.1); CARBON DIOXIDE 28.4 mmol/L (21.0-32.0); POTASSIUM - SERUM 4.4 mmol/L (3.5-5.1)
[2018-01-11 06:53] LABS: CREATININE - SERUM 0.9 mg/dL (0.6-1.3)
[2018-01-11 08:58] VITALS: BP 145/86
[2018-01-11 12:02] VITALS: BP 150/89
[2018-01-11 16:30] VITALS: BP 145/78
[2018-01-11 21:09] VITALS: BP 152/78
[2018-01-12 06:07] VITALS: BP 124/75
[2018-01-12 06:55] LABS: BASOPHILS 0.2 % (0-2); EOSINOPHILS 0 % (0-7); HEMATOCRIT 41.5 % (36.0-48.0); IMMATURE GRANULOCYTES 2.6 % (0-5); LYMPHOCYTES 17.2 % (15-50); MCH 30.6 pg (26.0-34.0); MCHC 33.7 g/dL (31.0-37.0); MCV 90.6 fL (80.0-100.0); MEAN PLATELET VOLUME 10.6 fL (7.4-10.4); MONOCYTES 9.5 % (2-11); NEUTROPHILS 70.5 % (40-80); PLATELET COUNT 270 10x3/uL (130-400); RBC 4.58 10x6/uL (4.00-5.40); RDW 13.8 % (11.5-14.5); WBC 12.5 10x3/uL (4.8-10.8)
[2018-01-12 07:07] LABS: ANION GAP 7.8 mmol/L (8-16); CALCIUM 8.2 mg/dL (8.5-10.1); CARBON DIOXIDE 30.1 mmol/L (21.0-32.0); CREATININE - SERUM 0.9 mg/dL (0.6-1.3); POTASSIUM - SERUM 3.9 mmol/L (3.5-5.1)
[2018-01-12 08:26] VITALS: BP 143/69
[2018-01-12 12:03] VITALS: BP 137/86
[2018-01-12 15:59] VITALS: BP 127/82
[2018-01-12 20:00] VITALS: BP 106/72
[2018-01-13] VITALS: BP 132/81
[2018-01-13 04:00] VITALS: BP 115/75
[2018-01-13 07:44] VITALS: BP 123/72
[2018-01-13 10:58] VITALS: BP 132/87
[2018-01-13 12:43] LABS: BASOPHILS 0.2 % (0-2); EOSINOPHILS 0.1 % (0-7); HEMATOCRIT 45.2 % (36.0-48.0); HEMOGLOBIN 15.6 g/dL (12-16); IMMATURE GRANULOCYTES 3.4 % (0-5); LYMPHOCYTES 19.8 % (15-50); MCH 31.3 pg (26.0-34.0); MCHC 34.5 g/dL (31.0-37.0); MCV 90.8 fL (80.0-100.0); MEAN PLATELET VOLUME 10.5 fL (7.4-10.4); MONOCYTES 8.8 % (2-11); NEUTROPHILS 67.7 % (40-80); PLATELET COUNT 245 10x3/uL (130-400); RBC 4.98 10x6/uL (4.00-5.40); RDW 13.9 % (11.5-14.5); WBC 13.3 10x3/uL (4.8-10.8)
[2018-01-13 13:01] LABS: ANION GAP 12.1 mmol/L (8-16); CALCIUM 8.6 mg/dL (8.5-10.1); CARBON DIOXIDE 28.9 mmol/L (21.0-32.0); CREATININE - SERUM 0.9 mg/dL (0.6-1.3)
[2018-01-13 15:37] VITALS: Ht 175.3 cm; Wt 112.9 kg
[2018-01-13 15:38] VITALS: BP 128/75
[2018-01-13 20:00] VITALS: BP 114/67
[2018-01-14 04:00] VITALS: BP 105/69
[2018-01-14 06:16] LABS: BASOPHILS 0.2 % (0-2); EOSINOPHILS 0.1 % (0-7); HEMATOCRIT 45.5 % (36.0-48.0); HEMOGLOBIN 15.4 g/dL (12-16); IMMATURE GRANULOCYTES 3.9 % (0-5); LYMPHOCYTES 8.5 % (15-50); MCHC 33.8 g/dL (31.0-37.0); MCV 91.5 fL (80.0-100.0); MEAN PLATELET VOLUME 11.2 fL (7.4-10.4); MONOCYTES 3.9 % (2-11); NEUTROPHILS 83.4 % (40-80); PLATELET COUNT 256 10x3/uL (130-400); RBC 4.97 10x6/uL (4.00-5.40); RDW 13.9 % (11.5-14.5); WBC 13.1 10x3/uL (4.8-10.8)
[2018-01-14 06:36] LABS: ALBUMIN 3.1 g/dL (3.4-5.0); ANION GAP 13.9 mmol/L (8-16); BILIRUBIN - TOTAL 0.24 mg/dL (0.2-1.3); CALCIUM 8.3 mg/dL (8.5-10.1); CARBON DIOXIDE 26.2 mmol/L (21.0-32.0); CREATININE - SERUM 0.9 mg/dL (0.6-1.3); POTASSIUM - SERUM 4.1 mmol/L (3.5-5.1); PROTEIN - SERUM 6.1 g/dL (6.4-8.2)
[2018-01-14 07:44] VITALS: BP 112/69
[2018-01-14 11:16] VITALS: BP 118/66
[2018-01-14] MEDS ORDERED: CARDIZEM60 MG PO (11:40)
[2018-01-14] MEDS ORDERED: BENZONATATE200 MG PO (11:41)
[2018-01-14] MEDS ORDERED: MUCINEX DM ER1 EAC1 PO (11:42)
[2018-01-14] MEDS ORDERED: FLORAJEN3 CAPS460 MG PO (11:43)
[2018-01-14 15:33] VITALS: BP 124/77
[2018-01-14 20:09] LABS: ACID FAST SMEAR Negative (()); AFB SPECIMEN PROCESSING Concentration (())
[2018-01-15 14:23] LABS: FUNGUS STAIN Final report (())
[2018-01-20 15:21] LABS: FUNGUS CULTURE RESULT 1 Candida albicans (()); FUNGUS MYCOLOGY CULTURE Preliminary report (())
== END 2018-01-14 15:41 | disposition home or self-care (01) | DRG 178 ==
LOC: D.MS 12:28 → D.M2 12:28
PROVIDERS: Family Medicine; Internal Medicine Gastroenterology; Internal Medicine Nephrology; Internal Medicine Pulmonary Disease
PROC: 0B978ZZ Drainage of Left Main Bronchus, Via Natural or Artificial Opening Endoscopic (ICD-10-PCS; principal; 2018-01-14)
PROC: 0B938ZZ Drainage of Right Main Bronchus, Via Natural or Artificial Opening Endoscopic (ICD-10-PCS; 2018-01-14)
DX: J69.0 Pneumonitis due to inhalation of food and vomit (principal); M35.1 Other overlap syndromes; J44.1 Chronic obstructive pulmonary disease with (acute) exacerbation; J98.11 Atelectasis; N17.9 Acute kidney failure, unspecified; J44.0 Chronic obstructive pulmonary disease with (acute) lower respiratory infection; F17.200 Nicotine dependence, unspecified, uncomplicated; I10 Essential (primary) hypertension; I27.20 Pulmonary hypertension, unspecified; K22.4 Dyskinesia of esophagus; K29.60 Other gastritis without bleeding; K29.80 Duodenitis without bleeding; G89.29 Other chronic pain; M19.90 Unspecified osteoarthritis, unspecified site; I48.91 Unspecified atrial fibrillation; R13.10 Dysphagia, unspecified; E11.9 Type 2 diabetes mellitus without complications

== ENCOUNTER 2018-03-05 16:08 | Inpatient (IN) | payer MEDICARE ==
[~2018-03-05] VITALS: Ht 175.3 cm; Wt 116.4 kg
--- NOTE | ~2018-03-05 | MORECARE ---
CASE MANAGEMENT DISCHARGE SUMMARY PATIENT: SANDRA MYERS UNIT: [id number] ADM DATE: 03/05/18 AGE: 52 : 61 SEX: F ROOM/BED: D.E07 AUTHOR: DESHAUN MASON PHYSICIAN: REFERRING PHYSICIAN: ANNETTE SULTANA MD DATE OF SERVICE: 03/05/18 Discharge Plan Patient Name: SANDRA MYERS Facility: [facility]:[place] : 1965 Planned Disposition: Home Anticipated Discharge Date: 03/08/18 Discharge Date: Expected LOS: 3 Initial Reviewer: [email or web address] Initial Review Date: 03/05/2018 Generated: 03/05/18 8:38 pm DCP- Discharge Planning Updated by [email or web address]: Edwina Lind on 03/05/18 6:[address] Patient Name: SANDRA MYERS Admission Status: ER Accout number: [id number] Admission Date: 03-05-2018 : 1965 Admission Diagnosis: Attending: ANNETTE SULTANA Current LOS: 1 Anticipated DC Date: 03-08-2018 Planned Disposition: Home Primary Insurance: MEDICARE A & B Discharge Planning Comments: CM met with patient to complete initial dc planning assessment. CM educated patient on the CM role and verbal consent given by patient to complete assessment. Patient lives at home and her daughter stays with her and assists her with her ADL's and IADL's. Patient reports she wears oxygen at and [facility] Patient is her O2 provider. At discharge patient plans to return home and feels this is a safe discharge. Patient denied known discharge needs at this time. CM will continue to follow and will assist as needed with dc plans/needs. See below for more assessment information. Cylinder Die Machine Helper: Edwina Lind RN, [facility] DCPIA - Discharge Planning Initial Assessment Updated by [email or web address]: Edwina Lind on 03/05/18 7:34 pm * Is the patient Alert and Oriented? Yes * How many steps to enter\exit or inside your home? * PCP Joo Kyle APRN @ Dr. Mccormick office * Pharmacy [facility] * Preadmission Environment Home with Family * ADLs Partial Dependent * Partial ADLs (Assistance needed) Ambulation Bathing Dressing Transfers * Equipment Cane Nebulizer Oxygen Walker * List name and contact numbers for known caregivers / representatives who currently or will assist patient after discharge: Anju Myers - daughter- [phone] Daisy Milner - daughter - [phone] * Verbal permission to speak to the caregivers and representatives has been obtained from the patient. Yes * Community resources currently utilized None * Additional services required to return to the preadmission environment? No * Can the patient safely return to the preadmission environment? Yes * Has this patient been hospitalized within the prior 30 days at any hospital? No Patient Name: SANDRA MYERS Page [phone] at 1938 All edits/amendments must be made on the electronic document DICTATION DATE: 03/05/181937 FIELD ADMINISTRATIVE ASSISTANT: MICHELLE 03/05/181937 RPT#: [id number] DC DATE: STATUS: ADM IN [facility] [address] [place] [address] END OF REPORT
--- NOTE | ~2018-03-05 | EC ---
PATIENT:SANDRA LYNNE DATE OF SERVICE: 03/05/18 SEX: F MEDICAL RECORD: [id number] DATE OF : 61 LOCATION:D. D.211 AGE OF PATIENT: 52 ADMISSION DATE: 03/05/18 REFERRING PHYSICIAN: INTERPRETING PHYSICIAN: FREDERIC RASHEED MD ECHOCARDIOGRAM REPORT ECHO CHARGES 5 ECHO LIMITED Date: 03/10/18 1 DOPPLER ECHO COLOR FLOW CLINICAL DIAGNOSIS: CP DYSPNEA ECHOCARDIOGRAPHIC MEASUREMENTS (adult normal given) AC root (d.<3.7cm) 2.8 cm LV Septum d (<1.2 cm> 1.3 cm Valve Excursion 1.1 cm LV Septum (systole) 2.1 cm Left Atria (s.<4.0cm> 3.7 cm LVPW d(<1.2cm) 0.9 cm RV (d.<2.3cm) 2.6 cm LVPW (sytole) 1.0 cm LV diastole(<5.6CM) 4.8 cm MV E-F(>70mm/sec) cm LV systole 3.4 cm LVOT Diameter 1.5 cm MV exc.(>10mm) cm Est.ejection fraction (50-75%) % DOPPLER: LVIT cm/sec A cm/sec E cm/sec LA cm/sec RVSP 26.3 mmHg LVOT cm/sec AOP1/2T m/s Asc. Ao cm/sec RVOT cm/sec RA cm/sec PA cm/sec AV Gradient Peak mmHg AV Mean mmHg AV Area cm MV Gradient Peak mmHg MV Mean mmHg MV Area cm COMMENTS: Surveyor'S Assistant: Chantale CHAUDHARY Architectural Drafter: 1 Dr. Rasheed TAPE# PACS Pericardial Effusion N ECHOCARDIOGRAM FINDINGS: 1. Left ventricular chamber size is within normal limits. Left ventricular systolic function is normal. Overall ejection fraction estimated at 55% to 60%. 2. Left atrium, right atrium, and right ventricle chamber sizes are within normal limits. 3. Valvular structures have normal structure and motion. 4. Doppler interrogation reveals only mild tricuspid regurgitation, no other valvular insufficiency or stenosis. Pulmonary systolic pressure is normal ECHOCARDIOGRAM REPORT [id number] SANDRA LYNNE estimated at 26 mmHg. 5. No evidence of pericardial effusion or left ventricular thrombus. TRANSINT:[id number] Voice Confirmation ID: [id number] DOCUMENT ID: [id number] 03/30/2018 Edited to put on correct account number and correct date, dmm. FREDERIC RASHEED MD CC: [id number] DICTATION DATE: 03/11/18 1251 DINING SERVICE SUPERVISOR: 03/11/18 1311 DIS IN 03/14/18 [facility] [address] [place] [address]
--- NOTE | ~2018-03-05 | MORECARE ---
CASE MANAGEMENT DISCHARGE SUMMARY PATIENT: SANDRA MYERS UNIT: [id number] ADM DATE: 03/05/18 AGE: 52 : 61 SEX: F ROOM/BED: D.2111 AUTHOR: MARLONDOC PHYSICIAN: REFERRING PHYSICIAN: ANNETTE SULTANA MD DATE OF SERVICE: 03/15/18 Discharge Plan Patient Name: SANDRA MYERS Facility: [facility]:[place] : 1965 Planned Disposition: Home Anticipated Discharge Date: 03/14/18 Discharge Date: 03/14/2018 Expected LOS: 9 Initial Reviewer: [email or web address] Initial Review Date: 03/05/2018 Generated: 03/15/18 9:23 am DCP- Discharge Planning Updated by [email or web address]: Edwina Lind on 03/05/18 6:[address] Patient Name: SANDRA MYERS Admission Status: ER Accout number: [id number] Admission Date: 03-05-2018 : 1965 Admission Diagnosis: Attending: ANNETTE SULTANA Current LOS: 1 Anticipated DC Date: 03-08-2018 Planned Disposition: Home Primary Insurance: MEDICARE A & B Discharge Planning Comments: CM met with patient to complete initial dc planning assessment. CM educated patient on the CM role and verbal consent given by patient to complete assessment. Patient lives at home and her daughter stays with her and assists her with her ADL's and IADL's. Patient reports she wears oxygen at and [facility] Patient is her O2 provider. At discharge patient plans to return home and feels this is a safe discharge. Patient denied known discharge needs at this time. CM will continue to follow and will assist as needed with dc plans/needs. See below for more assessment information. Filenet Developer: Edwina Lind RN, [facility] DCPIA - Discharge Planning Initial Assessment Updated by [email or web address]: Edwina Lind on 03/05/18 7:34 pm * Is the patient Alert and Oriented? Yes * How many steps to enter\exit or inside your home? * PCP Joo Kyle APRN @ Dr. Mccormick office * Pharmacy [facility] * Preadmission Environment Home with Family * ADLs Partial Dependent * Partial ADLs (Assistance needed) Ambulation Bathing Dressing Transfers * Equipment Cane Nebulizer Oxygen Walker * List name and contact numbers for known caregivers / representatives who currently or will assist patient after discharge: Anju Myers - daughter- [phone] Daisy Milner - daughter - [phone] * Verbal permission to speak to the caregivers and representatives has been obtained from the patient. Yes * Community resources currently utilized None * Additional services required to return to the preadmission environment? No * Can the patient safely return to the preadmission environment? Yes * Has this patient been hospitalized within the prior 30 days at any hospital? No Coverage Notice Reviewer: [email or web address] Rudy Cesar Notice Issued Date-Time: 03/14/2018 17:38 Notice Type: IM Discharge Notice Notice Delivered To: Patient Relationship to Patient: Self Machinery Erector Name: Delivery Method: HAND - Hand Delivered Maranda Days: Prior Verbal Notification: Recipient Understood Notice: Yes Recipient Signature: Yes Med Rec Note Co-signed by Attending: Coverage Notice Comment: Last DP export: 03/05/18 6:38 p Patient Name: SANDRA MYERS Page [phone] at 0823 All edits/amendments must be made on the electronic document DICTATION DATE: 03/15/18821 COLLEGE SCOUTING COORDINATOR: MICHELLE 03/15/18821 RPT#: [id number] DC DATE:03/14/18 STATUS: DIS IN [facility] [address] [place] [address] END OF REPORT
[~2018-03-05 16:08] MED LIST changes: +BENZONATATE200 MG PO; +CARDIZEM60 MG PO
[2018-03-05 16:36] LABS: BASOPHILS 0.2 % (0-2); EOSINOPHILS 0.7 % (0-7); HEMATOCRIT 42.3 % (36.0-48.0); HEMOGLOBIN 14.5 g/dL (12-16); IMMATURE GRANULOCYTES 0.4 % (0-5); LYMPHOCYTES 14.3 % (15-50); MCH 31.6 pg (26.0-34.0); MCHC 34.3 g/dL (31.0-37.0); MCV 92.2 fL (80.0-100.0); MEAN PLATELET VOLUME 10.8 fL (7.4-10.4); MONOCYTES 4.9 % (2-11); NEUTROPHILS 79.5 % (40-80); PLATELET COUNT 236 10x3/uL (130-400); RBC 4.59 10x6/uL (4.00-5.40); RDW 14.2 % (11.5-14.5); WBC 11.8 10x3/uL (4.8-10.8)
[2018-03-05 16:44] LABS: APTT 21.8 SECONDS (22.8-39.4); INR 0.97 (0.85-1.17); PROTIME 12.5 SECONDS (11.6-15.0)
[2018-03-05 16:50] LABS: ALBUMIN 3.7 g/dL (3.4-5.0); ALKALINE PHOSPHATASE 68 U/L (46-116); ALT (SGPT) 38 U/L (10-68); BILIRUBIN - TOTAL 0.26 mg/dL (0.2-1.3); CALC OSMOLALITY 281 mosm/kg (275-300); CALCIUM 9.1 mg/dL (8.5-10.1); CHLORIDE - SERUM 104 mmol/L (98-107); CREATININE - SERUM 1.1 mg/dL (0.6-1.3); GLUCOSE 136 mg/dL (74-106); POTASSIUM - SERUM 3.9 mmol/L (3.5-5.1); PROTEIN - SERUM 7.1 g/dL (6.4-8.2); SODIUM 140 mmol/L (136-145); UREA NITROGEN 16 mg/dL (7-18); eGFR NON AFRICAN AMERICAN 55 mL/min (90-120)
[2018-03-05 17:01] LABS: CKMB 0.7 U/L (0.0-3.6); CREATINE KINASE 93 UL (21-215); PRO BNP 63 pg/mL (0-125)
[2018-03-05 17:02] LABS: TROPONIN-I < 0.017 ng/mL (0.000-0.060)
[2018-03-05] MEDS ORDERED: VENTOLIN HFA18 GM INH (18:07)
[2018-03-05] MEDS ORDERED: VIBRAMYCIN 100100 MG PO (18:07)
[2018-03-05] MEDS ORDERED: LYRICA200 MG PO (23:04)
[2018-03-05] MEDS ORDERED: INVOKANA100 MG PO (23:05)
[2018-03-05] MEDS ORDERED: ZOLOFT100 MG PO (23:06)
[2018-03-05] MEDS ORDERED: FEXOFENADINE H180 MG PO (23:07)
[2018-03-05] MEDS ORDERED: OMEPRAZOLE40 MG PO (23:08)
[2018-03-05] MEDS ORDERED: SINGULAIR10 MG PO (23:09)
[2018-03-05] MEDS ORDERED: DICLOFENAC SODI50 MG PO (23:09)
[2018-03-05] MEDS ORDERED: PREDNISONE10 MG PO (23:11)
[2018-03-05] MEDS ORDERED: LEVAQUIN750 MG PO (23:12)
[2018-03-05] MEDS ORDERED: CARDIZEM120 MG PO (23:12)
[2018-03-05] MEDS ORDERED: ANUSOL-HC 2.5%30 GM RC (23:14)
[2018-03-06] VITALS (7 sets, daily range): BP systolic 98–145; BP diastolic 67–96; BMI 34.0; BMI 33.9
[2018-03-06 05:22] LABS: BASOPHILS 0 % (0-2); EOSINOPHILS 0 % (0-7); HEMATOCRIT 42.3 % (36.0-48.0); HEMOGLOBIN 14.1 g/dL (12-16); IMMATURE GRANULOCYTES 0.2 % (0-5); LYMPHOCYTES 15.7 % (15-50); MCH 30.5 pg (26.0-34.0); MCHC 33.3 g/dL (31.0-37.0); MCV 91.4 fL (80.0-100.0); MONOCYTES 2.3 % (2-11); NEUTROPHILS 81.8 % (40-80); PLATELET COUNT 240 10x3/uL (130-400); RBC 4.63 10x6/uL (4.00-5.40); RDW 14.1 % (11.5-14.5); WBC 9.2 10x3/uL (4.8-10.8)
[2018-03-06 05:31] LABS: ALBUMIN 3.5 g/dL (3.4-5.0); ANION GAP 12.5 mmol/L (8-16); BILIRUBIN - TOTAL 0.18 mg/dL (0.2-1.3); CALCIUM 9.1 mg/dL (8.5-10.1); CARBON DIOXIDE 26.6 mmol/L (21.0-32.0); POTASSIUM - SERUM 4.1 mmol/L (3.5-5.1); PROTEIN - SERUM 6.9 g/dL (6.4-8.2)
[2018-03-07 00:30] VITALS: BP 110/65
[2018-03-07 04:30] VITALS: BP 139/70
[2018-03-07 05:58] LABS: BASOPHILS 0.1 % (0-2); EOSINOPHILS 0 % (0-7); HEMATOCRIT 42.3 % (36.0-48.0); HEMOGLOBIN 14.2 g/dL (12-16); IMMATURE GRANULOCYTES 0.5 % (0-5); LYMPHOCYTES 11.1 % (15-50); MCH 30.7 pg (26.0-34.0); MCHC 33.6 g/dL (31.0-37.0); MCV 91.6 fL (80.0-100.0); MEAN PLATELET VOLUME 11.2 fL (7.4-10.4); MONOCYTES 4.9 % (2-11); NEUTROPHILS 83.4 % (40-80); PLATELET COUNT 269 10x3/uL (130-400); RBC 4.62 10x6/uL (4.00-5.40); RDW 14.2 % (11.5-14.5)
[2018-03-07 06:11] LABS: WBC 13.5 10x3/uL (4.8-10.8)
[2018-03-07 06:13] LABS: ANION GAP 11.8 mmol/L (8-16); CALCIUM 9.2 mg/dL (8.5-10.1); CARBON DIOXIDE 29.7 mmol/L (21.0-32.0); CHOL - HDL RATIO 3.9 ratio (2.3-4.1); LDL-HDL RATIO 2.6 ratio (1.5-3.5); POTASSIUM - SERUM 4.5 mmol/L (3.5-5.1)
[2018-03-07 07:56] VITALS: BP 114/58
[2018-03-07 11:13] LABS: APPEARANCE CLEAR (CLEAR); BILIRUBIN NEGATIVE (NEGATIVE); COLOR YELLOW (YELLOW); GLUCOSE 1000 mg/dL (NEGATIVE); KETONE NEGATIVE (NEGATIVE); NITRITE NEGATIVE (NEGATIVE); PROTEIN NEGATIVE (NEGATIVE); SPECIFIC GRAVITY 1.015 (1.005-1.020); UROBILINOGEN NORMAL (NORMAL)
[2018-03-07 11:53] VITALS: BP 137/78
[2018-03-07 16:14] VITALS: BP 133/77
[2018-03-07 21:14] VITALS: BP 132/63
[2018-03-08 01:15] VITALS: BP 104/49
[2018-03-08 04:45] VITALS: BP 111/60
[2018-03-08 05:34] LABS: BASOPHILS 0.1 % (0-2); EOSINOPHILS 0 % (0-7); HEMATOCRIT 40.5 % (36.0-48.0); HEMOGLOBIN 13.5 g/dL (12-16); IMMATURE GRANULOCYTES 0.7 % (0-5); LYMPHOCYTES 6.2 % (15-50); MCH 30.7 pg (26.0-34.0); MCHC 33.3 g/dL (31.0-37.0); MEAN PLATELET VOLUME 10.6 fL (7.4-10.4); MONOCYTES 4.5 % (2-11); NEUTROPHILS 88.5 % (40-80); RDW 14.2 % (11.5-14.5); WBC 11.7 10x3/uL (4.8-10.8)
[2018-03-08 05:43] LABS: ANION GAP 12.9 mmol/L (8-16); CALCIUM 8.4 mg/dL (8.5-10.1); CARBON DIOXIDE 25.3 mmol/L (21.0-32.0); CREATININE - SERUM 1.2 mg/dL (0.6-1.3); POTASSIUM - SERUM 4.2 mmol/L (3.5-5.1)
[2018-03-08 05:47] LABS: PLATELET COUNT 213 10x3/uL (130-400)
[2018-03-08 08:47] VITALS: BP 113/65
[2018-03-08 11:34] VITALS: BP 100/58
[2018-03-08 15:53] VITALS: BP 115/64
[2018-03-08 16:24] LABS: CKMB 1.2 U/L (0.0-3.6); CREATINE KINASE 89 UL (21-215)
[2018-03-08 16:26] LABS: TROPONIN-I < 0.017 ng/mL (0.000-0.060)
[2018-03-08 20:59] LABS: CKMB 1.2 U/L (0.0-3.6); CREATINE KINASE 51 UL (21-215)
[2018-03-08 21:02] LABS: TROPONIN-I < 0.017 ng/mL (0.000-0.060)
[2018-03-08 21:46] VITALS: BP 102/52
[2018-03-09 02:34] VITALS: BP 109/63
[2018-03-09 03:06] LABS: BASOPHILS 0 % (0-2); EOSINOPHILS 0.1 % (0-7); HEMATOCRIT 40.5 % (36.0-48.0); HEMOGLOBIN 13.5 g/dL (12-16); IMMATURE GRANULOCYTES 0.7 % (0-5); LYMPHOCYTES 9.9 % (15-50); MCH 30.6 pg (26.0-34.0); MCHC 33.3 g/dL (31.0-37.0); MCV 91.8 fL (80.0-100.0); MEAN PLATELET VOLUME 11.2 fL (7.4-10.4); MONOCYTES 3.9 % (2-11); NEUTROPHILS 85.4 % (40-80); PLATELET COUNT 220 10x3/uL (130-400); RBC 4.41 10x6/uL (4.00-5.40); WBC 11.1 10x3/uL (4.8-10.8)
[2018-03-09 03:28] LABS: CALC OSMOLALITY 288 mosm/kg (275-300); CALCIUM 8.5 mg/dL (8.5-10.1); CARBON DIOXIDE 30.1 mmol/L (21.0-32.0); CHLORIDE - SERUM 105 mmol/L (98-107); CKMB 1.2 U/L (0.0-3.6); CREATINE KINASE 47 UL (21-215); CREATININE - SERUM 1.1 mg/dL (0.6-1.3); GLUCOSE 180 mg/dL (74-106); POTASSIUM - SERUM 4.2 mmol/L (3.5-5.1); SODIUM 140 mmol/L (136-145); TROPONIN-I < 0.017 ng/mL (0.000-0.060); UREA NITROGEN 26 mg/dL (7-18); eGFR NON AFRICAN AMERICAN 55 mL/min (90-120)
[2018-03-09 06:34] VITALS: BP 136/72
[2018-03-09 08:20] VITALS: BP 152/77
[2018-03-09 08:51] VITALS: Ht 175.3 cm; Wt 116.4 kg
[2018-03-09 12:23] VITALS: BP 125/64
[2018-03-09 16:10] VITALS: BP 116/72
[2018-03-09 20:36] VITALS: BP 98/58
[2018-03-10 04:00] VITALS: BP 121/71
[2018-03-10 06:23] LABS: BASOPHILS 0.1 % (0-2); EOSINOPHILS 0 % (0-7); HEMATOCRIT 40.1 % (36.0-48.0); HEMOGLOBIN 13.4 g/dL (12-16); IMMATURE GRANULOCYTES 1.2 % (0-5); LYMPHOCYTES 8.3 % (15-50); MCH 30.5 pg (26.0-34.0); MCHC 33.4 g/dL (31.0-37.0); MCV 91.3 fL (80.0-100.0); MEAN PLATELET VOLUME 11.1 fL (7.4-10.4); MONOCYTES 5.4 % (2-11); PLATELET COUNT 221 10x3/uL (130-400); RBC 4.39 10x6/uL (4.00-5.40); RDW 14.1 % (11.5-14.5); WBC 12.3 10x3/uL (4.8-10.8)
[2018-03-10 06:46] LABS: ALBUMIN 3.1 g/dL (3.4-5.0); ANION GAP 13.5 mmol/L (8-16); BILIRUBIN - TOTAL 0.24 mg/dL (0.2-1.3); CALCIUM 8.4 mg/dL (8.5-10.1); CARBON DIOXIDE 26.3 mmol/L (21.0-32.0); CREATININE - SERUM 1.1 mg/dL (0.6-1.3); POTASSIUM - SERUM 3.8 mmol/L (3.5-5.1); PROTEIN - SERUM 6.1 g/dL (6.4-8.2)
[2018-03-10 06:49] LABS: INR 0.98 (0.85-1.17); PROTIME 12.6 SECONDS (11.6-15.0)
[2018-03-10 15:44] VITALS: BP 137/76
[2018-03-10 20:00] VITALS: BP 126/76
[2018-03-11 04:00] VITALS: BP 101/59
[2018-03-11 06:20] LABS: ALBUMIN 3.2 g/dL (3.4-5.0); ANION GAP 11.9 mmol/L (8-16); BILIRUBIN - TOTAL 0.26 mg/dL (0.2-1.3); CALCIUM 8.3 mg/dL (8.5-10.1); CARBON DIOXIDE 27.1 mmol/L (21.0-32.0); PROTEIN - SERUM 6.2 g/dL (6.4-8.2)
[2018-03-11 06:37] LABS: INR 0.98 (0.85-1.17); PROTIME 12.7 SECONDS (11.6-15.0)
[2018-03-11 06:49] LABS: BASOPHILS 0.1 % (0-2); EOSINOPHILS 0.1 % (0-7); HEMATOCRIT 42.4 % (36.0-48.0); HEMOGLOBIN 14.2 g/dL (12-16); IMMATURE GRANULOCYTES 2.7 % (0-5); LYMPHOCYTES 10.7 % (15-50); MCH 30.7 pg (26.0-34.0); MCHC 33.5 g/dL (31.0-37.0); MCV 91.8 fL (80.0-100.0); MONOCYTES 7.9 % (2-11); NEUTROPHILS 78.5 % (40-80); PLATELET COUNT 251 10x3/uL (130-400); RBC 4.62 10x6/uL (4.00-5.40); RDW 14.3 % (11.5-14.5)
[2018-03-11 06:51] LABS: WBC 15.7 10x3/uL (4.8-10.8)
[2018-03-11 08:13] VITALS: BP 132/83
[2018-03-11 11:54] VITALS: BP 100/61
[2018-03-11 15:53] VITALS: BP 106/61
[2018-03-11 21:57] VITALS: BP 99/50
[2018-03-12 01:04] VITALS: BP 99/54
[2018-03-12 04:10] LABS: BASOPHILS 0.1 % (0-2); EOSINOPHILS 0 % (0-7); HEMATOCRIT 40.5 % (36.0-48.0); HEMOGLOBIN 13.5 g/dL (12-16); IMMATURE GRANULOCYTES 2.3 % (0-5); LYMPHOCYTES 7.6 % (15-50); MCH 30.5 pg (26.0-34.0); MCHC 33.3 g/dL (31.0-37.0); MCV 91.6 fL (80.0-100.0); MEAN PLATELET VOLUME 10.7 fL (7.4-10.4); RBC 4.42 10x6/uL (4.00-5.40); RDW 14.1 % (11.5-14.5)
[2018-03-12 04:21] LABS: PLATELET COUNT 200 10x3/uL (130-400); WBC 10.8 10x3/uL (4.8-10.8)
[2018-03-12 04:37] LABS: ALBUMIN 3.1 g/dL (3.4-5.0); ANION GAP 13.7 mmol/L (8-16); BILIRUBIN - TOTAL 0.29 mg/dL (0.2-1.3); CALCIUM 8.5 mg/dL (8.5-10.1); CARBON DIOXIDE 26.6 mmol/L (21.0-32.0); MAGNESIUM - SERUM 2.6 mg/dL (1.8-2.4); POTASSIUM - SERUM 4.3 mmol/L (3.5-5.1); PROTEIN - SERUM 5.7 g/dL (6.4-8.2)
[2018-03-12 05:40] VITALS: BP 100/56
[2018-03-12 09:01] VITALS: BP 132/69
[2018-03-12] MEDS ORDERED: MUCINEX DM ER1 EAC1 PO (10:19)
[2018-03-12] MEDS ORDERED: DALIRESP500 MCG PO (10:19)
[2018-03-12] MEDS ORDERED: BENZONATATE200 MG PO (10:19)
[2018-03-12] MEDS ORDERED: GLUCOPHAGE500 MG PO (10:20)
[2018-03-12] MEDS ORDERED: CARAFATE1 G/10 ML GT (10:20)
[2018-03-12] MEDS ORDERED: COLACE100 MG PO (10:23)
[2018-03-12] MEDS ORDERED: PEPCID40 MG PO (10:25)
[2018-03-12] MEDS ORDERED: ANUSOL-HC25 MG RC (10:26)
[2018-03-12] MEDS ORDERED: MIRALAX17 GM PO (10:27)
[2018-03-12] MEDS ORDERED: DOXYCYCLINE HY100 M2 PO (10:29)
[2018-03-12 12:18] VITALS: BP 138/73
[2018-03-12 16:06] VITALS: BP 134/70
[2018-03-12 20:12] VITALS: BP 126/69
[2018-03-13 01:03] VITALS: BP 112/61
[2018-03-13 06:00] VITALS: BP 145/71
[2018-03-13 06:03] LABS: BASOPHILS 0.1 % (0-2); EOSINOPHILS 0 % (0-7); HEMATOCRIT 41.4 % (36.0-48.0); HEMOGLOBIN 13.7 g/dL (12-16); IMMATURE GRANULOCYTES 2.4 % (0-5); LYMPHOCYTES 9.4 % (15-50); MCH 30.2 pg (26.0-34.0); MCHC 33.1 g/dL (31.0-37.0); MCV 91.4 fL (80.0-100.0); MONOCYTES 5.6 % (2-11); NEUTROPHILS 82.5 % (40-80); PLATELET COUNT 196 10x3/uL (130-400); RBC 4.53 10x6/uL (4.00-5.40); RDW 14.1 % (11.5-14.5); WBC 13.2 10x3/uL (4.8-10.8)
[2018-03-13 06:33] LABS: ANION GAP 10.5 mmol/L (8-16); CARBON DIOXIDE 30.2 mmol/L (21.0-32.0); POTASSIUM - SERUM 4.7 mmol/L (3.5-5.1)
[2018-03-13 07:02] LABS: ALBUMIN 2.9 g/dL (3.4-5.0); BILIRUBIN - TOTAL 0.29 mg/dL (0.2-1.3); CALCIUM 8.4 mg/dL (8.5-10.1); CREATININE - SERUM 0.9 mg/dL (0.6-1.3); MAGNESIUM - SERUM 2.4 mg/dL (1.8-2.4); PROTEIN - SERUM 5.7 g/dL (6.4-8.2)
[2018-03-13 09:00] VITALS: BP 119/70
[2018-03-13 21:13] VITALS: BP 122/62; BP 136/65
[2018-03-13 23:50] VITALS: BP 109/70
[2018-03-14 03:45] VITALS: BP 116/65
[2018-03-14 05:22] LABS: BASOPHILS 0.1 % (0-2); EOSINOPHILS 0 % (0-7); IMMATURE GRANULOCYTES 2.1 % (0-5); LYMPHOCYTES 7.7 % (15-50); MCH 30.6 pg (26.0-34.0); MCHC 33.3 g/dL (31.0-37.0); MCV 91.7 fL (80.0-100.0); MEAN PLATELET VOLUME 10.7 fL (7.4-10.4); MONOCYTES 6.2 % (2-11); NEUTROPHILS 83.9 % (40-80); PLATELET COUNT 180 10x3/uL (130-400); RBC 4.58 10x6/uL (4.00-5.40); RDW 13.8 % (11.5-14.5); WBC 14.4 10x3/uL (4.8-10.8)
[2018-03-14 05:43] LABS: BILIRUBIN - TOTAL 0.43 mg/dL (0.2-1.3); CALCIUM 8.8 mg/dL (8.5-10.1); CARBON DIOXIDE 33.9 mmol/L (21.0-32.0); CREATININE - SERUM 0.9 mg/dL (0.6-1.3); MAGNESIUM - SERUM 2.4 mg/dL (1.8-2.4); POTASSIUM - SERUM 4.9 mmol/L (3.5-5.1); PROTEIN - SERUM 5.8 g/dL (6.4-8.2)
[2018-03-14 10:05] VITALS: BP 111/67
[2018-03-14 13:23] VITALS: BP 104/61
[2018-03-14] MEDS ORDERED: PREDNISONE10 MG PO (15:36)
[2018-03-14] MEDS ORDERED: ANUSOL-HC 2.5%30 GM RC (16:10)
== END 2018-03-14 18:26 | disposition home or self-care (01) | DRG 190 ==
LOC: D.ER 16:08 → D.EDHOLD 19:02 → D.M2 19:02
PROVIDERS: Emergency Medicine; Family Medicine; Internal Medicine Gastroenterology; Internal Medicine Nephrology
PROC: 0DB98ZX Excision of Duodenum, Via Natural or Artificial Opening Endoscopic, Diagnostic (ICD-10-PCS; 2018-03-11)
PROC: 0DB68ZX Excision of Stomach, Via Natural or Artificial Opening Endoscopic, Diagnostic (ICD-10-PCS; 2018-03-11)
PROC: 0D758ZZ Dilation of Esophagus, Via Natural or Artificial Opening Endoscopic (ICD-10-PCS; principal; 2018-03-11 15:30)
DX: J44.1 Chronic obstructive pulmonary disease with (acute) exacerbation (principal); J15.6 Pneumonia due to other Gram-negative bacteria; J98.11 Atelectasis; F17.213 Nicotine dependence, cigarettes, with withdrawal; J44.0 Chronic obstructive pulmonary disease with (acute) lower respiratory infection; J20.9 Acute bronchitis, unspecified; K21.9 Gastro-esophageal reflux disease without esophagitis; J30.9 Allergic rhinitis, unspecified; I27.20 Pulmonary hypertension, unspecified; E11.9 Type 2 diabetes mellitus without complications; I10 Essential (primary) hypertension; M19.90 Unspecified osteoarthritis, unspecified site; I48.91 Unspecified atrial fibrillation; F32.9 Major depressive disorder, single episode, unspecified; R04.0 Epistaxis; G89.4 Chronic pain syndrome; R16.2 Hepatomegaly with splenomegaly, not elsewhere classified; K29.70 Gastritis, unspecified, without bleeding; K29.80 Duodenitis without bleeding; K21.0 Gastro-esophageal reflux disease with esophagitis; K22.2 Esophageal obstruction

== ENCOUNTER 2018-03-20 15:00 | Inpatient (IN) | payer MEDICARE ==
[~2018-03-20] VITALS: Ht 175.3 cm; Wt 113.6 kg
--- NOTE | ~2018-03-20 | MORECARE ---
CASE MANAGEMENT DISCHARGE SUMMARY PATIENT: SANDRA LYNNE UNIT: [id number] ADM DATE: 03/20/18 AGE: 52 : 61 SEX: F ROOM/BED: D.2217 AUTHOR: DESHAUN MASON PHYSICIAN: REFERRING PHYSICIAN: ANNETTE SULTANA MD DATE OF SERVICE: 03/26/18 Discharge Plan Patient Name: SANDRA LYNNE Facility: [facility]:[place] : 1965 Planned Disposition: Home Anticipated Discharge Date: Discharge Date: 03/24/2018 Expected LOS: Initial Reviewer: [email or web address] Initial Review Date: 03/20/2018 Generated: 03/26/18 4:02 pm Comments DCP- Discharge Planning Updated by [email or web address]: Leena Soria on 03/24/18 10:[address] Patient Name: SANDRA LYNNE Encounter No: [id number] : 1965 Primary Insurance: MEDICARE A & B Anticipated DC Date: Planned Disposition: Home External Planned Provider: : DCP follow-up note: Patient and family in agreement with discharge plan. No changes to plan. Case management will follow and assist as needed. Leena Soria DCP- Discharge Planning Updated by [email or web address]: Leena Soria on 03/23/18 4:[address] IMM SERVED AND EXPLAINED DCP- Discharge Planning Updated by [email or web address]: Leena Soria on 03/23/18 2:[address] Patient Name: SANDRA LYNNE Admission Status: ER Accout number: [id number] Admission Date: 03-20-2018 : 1965 Admission Diagnosis:PNEUMONIA, UNSPECIFIED ORGANISM Attending: ANNETTE SULTANA Current LOS: 3 Anticipated DC Date: Planned Disposition: Home Primary Insurance: MEDICARE A & B Discharge Planning Comments: CM MET WITH PATIENT TO ASSESS DISCHARGE PLANNING NEEDS. PATIENT STATED THAT SHE LIVES INDEPENDENLY AT HOME WHERE SHE PLANS TO RETURN. ONE OF HER DAUGHTERS WILL BE DRIVING HER HOME AND DISCHARGE. HSE HAS HOME O2, NEBULIZER, O2 CONCENTRATOR ([facility])CANE AND WALKER. SHE DOES NOT THINK THAT SHE WILL NEED HOME HEALTH CM WILL CONTINUE TO FOLLOW AND ASSIST WITH DC PLANNING Industrial Hygienist: Leena Soria DCP- Discharge Planning Updated by [id number]: Elizabeth Olea on 03/21/18 9:[address] LATE ENTRY 0945 CONSULT RECEIVED. CM VISITED. THE PATIENT WAS NOT FEELING WELL ENOUGH TO SPEAK WITH THE CM. SHE WAS ADMITTED FROM HOME WITH COMPLAINT OF INCREASED COUGHING AND FEELING BADLY.SHE STATES SHE DID OBTAIN HER PRESCRIPTIONS AND HAD F/U MD APPOINTMENT. SHE WAS DISCHARGED TO HOME 03/14 WITH [facility]SEC[facility]S TO FOLLOW PATIENT LIVES AT HOME AND HAS A DAUGHTER WHO STAYS WITH HER AND ASSIST. SHE HAS HOME OXYGEN WITH [facility]. HAS OXYGEN, NEBULIZER, WALKER AND CANE. CM WILL FOLLOW TO COMPLETE ASSESSMENT OF NEEDS. DCPIA - Discharge Planning Initial Assessment Updated by [email or web address]: Leena Soria on 03/23/18 3:48 pm * Is the patient Alert and Oriented? Yes * PCP CHASITY ANN APN * Pharmacy [facility] * Preadmission Environment Home with Family * ADLs Independent * Equipment Cane Nebulizer Oxygen Walker * List name and contact numbers for known caregivers / representatives who currently or will assist patient after discharge: CHEKO LYNNE (DAUGHTER) [phone] JAE PRADO (DAUGHTER) [phone] * Verbal permission to speak to the caregivers and representatives has been obtained from the patient. N/A * Community resources currently utilized None * Additional services required to return to the preadmission environment? No * Can the patient safely return to the preadmission environment? Yes * Has this patient been hospitalized within the prior 30 days at any hospital? Yes Coverage Notice Reviewer: [id number] - Leena Soria Notice Issued Date-Time: 03/23/2018 16:25 Notice Type: IM Discharge Notice Notice Delivered To: Patient Relationship to Patient: Restrictive Preparation Operator Name: Delivery Method: HAND - Hand Delivered Maranda Days: Prior Verbal Notification: Recipient Understood Notice: Yes Recipient Signature: Yes Med Rec Note Co-signed by Attending: Coverage Notice Comment: Last DP export: 03/24/18 10:47 Patient Name: SANDRA LYNNE Page [phone] at 1502 All edits/amendments must be made on the electronic document DICTATION DATE: 03/26/18 1502 STOCKROOM COORDINATOR: DM 03/26/18 1502 RPT#: [id number] DC DATE:03/24/18 STATUS: DIS IN [facility] [address] [place] [address] END OF REPORT
--- NOTE | ~2018-03-20 | CN ---
PATIENT NAME:SANDRA MYERS MEDICAL RECORD: [id number] : 61 LOCATION:D.MS Sultana ADMIT DATE: 03/20/18 ACCOUNT: [id number] CONSULTING PHYSICIAN: VICKI AVILEZ MD REFERRING PHYSICIAN: ANNETTE SULTANA MD DATE OF CONSULTATION: 03/22/2018 CONSULT REQUESTING PHYSICIAN: Toro Hernandez DO REASON FOR CONSULTATION: COPD. HISTORY OF PRESENT ILLNESS: Ms. Myers is a 52-year-old female who has history of COPD, asthma, and gastroesophageal reflux disease. She was just discharged home a few days ago. The patient came in with some mental status changes and also she was complaining of weird sensation in her upper thigh and weakness and bodyaches all over. Now, she feels lot better and wants to go home. Denies any fever and chills. No night sweats. REVIEW OF THE SYSTEMS: As in history of present illness. PAST MEDICAL HISTORY: 1. COPD. 2. Asthma. 3. Gastroesophageal reflux disease. 4. Chronic pain syndrome. 5. Degenerative joint disease. 6. History of pulmonary hypertension with right ventricular systolic pressure of 40. 7. History of atrial fibrillation. 8. History of gallstone. 9. Hypoxemia. PAST SURGICAL HISTORY: 1. She had T&A. 2. Hysterectomy. 3. Right wrist tendon surgery. 3. Left shoulder fracture surgery. ALLERGIES: SHE IS ALLERGIC TO MEPERIDINE. MEDICATIONS: [facility] was reviewed. PERSONAL AND SOCIAL HISTORY: The patient is current someday smoker. She is nondrinker. FAMILY HISTORY: Significant for hypertension. PHYSICAL EXAMINATION: GENERAL: Now, the patient is lying comfortably in bed. She is not in acute distress. VITAL SIGNS: Blood pressure is 115/71, pulse is 96, respiration is 18, temperature is 98, and SpO2 is 96% on 2 liters nasal cannula. HEENT: Conjunctivae are pink. Sclerae are not icteric. NECK: Neck is supple. No JVD. CHEST: There is wheeze on forceful expiration. CONSULT REPORT [id number] SANDRA MYERS HEART: Rhythm regular. Normal sound. No murmur. ABDOMEN: Abdomen is soft. Bowel sounds present. No hepatosplenomegaly. RECTAL: Deferred. EXTREMITIES: No cyanosis. No clubbing. No pedal edema. CENTRAL NERVOUS SYSTEM: The patient is awake and alert. There is no obvious cranial nerve abnormality. The gait was not tested. LABORATORY DATA: CBC; WBC 9.8, hemoglobin 12.7, hematocrit 39.2, and platelet count 146. Chemistry; sodium 142, potassium 3.5, BUN is 16, and creatinine 0.6. IMPRESSION: 1. Mental status changes, this has improved, most likely secondary to drug side effects. 2. COPD without exacerbation. 3. Atelectasis and scarring, right lower lobe. 4. Asthma. 5. Gastroesophageal reflux disease. 6. Cholelithiasis. RECOMMENDATION: 1. Continue supplemental oxygen as required. 2. Albuterol/ipratropium nebulizer. 3. Brovana and budesonide nebulizer. 4. The patient has chronic x-ray changes. I doubt it is acute infiltrate. The patient is requesting to go home. We will let her go home on tapering p.o. prednisone and doxycycline. The patient will continue the home nebulized medication. Dr. Hernandez, thank you for involving me in the care of Ms. Myers. TRANSINT:[id number] Voice Confirmation ID: [id number] DOCUMENT ID: [id number] VICKI AVILEZ MD at 1711 CC: [id number] DICTATION DATE: 03/22/182057 SQUEEGEER AND FORMER: 03/23/18 0043 DIS IN 03/24/18 [address] [place] [address]
--- NOTE | ~2018-03-20 | MORECARE ---
CASE MANAGEMENT DISCHARGE SUMMARY PATIENT: SANDRA LYNNE UNIT: [id number] ADM DATE: 03/20/18 AGE: 52 : 61 SEX: F ROOM/BED: D.2217 AUTHOR: DESHAUN MASON PHYSICIAN: REFERRING PHYSICIAN: ANNETTE SULTANA MD DATE OF SERVICE: 03/24/18 Discharge Plan Patient Name: SANDRA LYNNE Facility: [facility]:[place] : 1965 Planned Disposition: Home Anticipated Discharge Date: Discharge Date: Expected LOS: Initial Reviewer: [email or web address] Initial Review Date: 03/20/2018 Generated: 03/24/18 12:47 pm Comments DCP- Discharge Planning Updated by [email or web address]: Leena Soria on 03/24/18 10:[address] Patient Name: SANDRA LYNNE Encounter No: [id number] : 1965 Primary Insurance: MEDICARE A & B Anticipated DC Date: Planned Disposition: Home External Planned Provider: : DCP follow-up note: Patient and family in agreement with discharge plan. No changes to plan. Case management will follow and assist as needed. Leena Soria DCP- Discharge Planning Updated by [email or web address]: Leena Soria on 03/23/18 4:[address] IMM SERVED AND EXPLAINED DCP- Discharge Planning Updated by [email or web address]: Leena Soria on 03/23/18 2:[address] Patient Name: SANDRA LYNNE Admission Status: ER Accout number: [id number] Admission Date: 03-20-2018 : 1965 Admission Diagnosis:PNEUMONIA, UNSPECIFIED ORGANISM Attending: ANNETTE SULTANA Current LOS: 3 Anticipated DC Date: Planned Disposition: Home Primary Insurance: MEDICARE A & B Discharge Planning Comments: CM MET WITH PATIENT TO ASSESS DISCHARGE PLANNING NEEDS. PATIENT STATED THAT SHE LIVES INDEPENDENLY AT HOME WHERE SHE PLANS TO RETURN. ONE OF HER DAUGHTERS WILL BE DRIVING HER HOME AND DISCHARGE. HSE HAS HOME O2, NEBULIZER, O2 CONCENTRATOR ([facility])CANE AND WALKER. SHE DOES NOT THINK THAT SHE WILL NEED HOME HEALTH CM WILL CONTINUE TO FOLLOW AND ASSIST WITH DC PLANNING Books Salesperson: Leena Soria DCP- Discharge Planning Updated by [email or web address]: Elizabeth Oela on 03/21/18 9:[address] LATE ENTRY 0945 CONSULT RECEIVED. CM VISITED. THE PATIENT WAS NOT FEELING WELL ENOUGH TO SPEAK WITH THE CM. SHE WAS ADMITTED FROM HOME WITH COMPLAINT OF INCREASED COUGHING AND FEELING BADLY.SHE STATES SHE DID OBTAIN HER PRESCRIPTIONS AND HAD F/U MD APPOINTMENT. SHE WAS DISCHARGED TO HOME 03/14 WITH [facility] TO FOLLOW PATIENT LIVES AT HOME AND HAS A DAUGHTER WHO STAYS WITH HER AND ASSIST. SHE HAS HOME OXYGEN WITH [facility]. HAS OXYGEN, NEBULIZER, WALKER AND CANE. CM WILL FOLLOW TO COMPLETE ASSESSMENT OF NEEDS. DCPIA - Discharge Planning Initial Assessment Updated by [id number]: Leena Soria on 03/23/18 3:48 pm * Is the patient Alert and Oriented? Yes * PCP CHASITY ANN APN * Pharmacy [facility] * Preadmission Environment Home with Family * ADLs Independent * Equipment Cane Nebulizer Oxygen Walker * List name and contact numbers for known caregivers / representatives who currently or will assist patient after discharge: CHEKO LYNNE (DAUGHTER) [phone] JAE PRADO (DAUGHTER) [phone] * Verbal permission to speak to the caregivers and representatives has been obtained from the patient. N/A * Community resources currently utilized None * Additional services required to return to the preadmission environment? No * Can the patient safely return to the preadmission environment? Yes * Has this patient been hospitalized within the prior 30 days at any hospital? Yes Coverage Notice Reviewer: [id number] - Leena Soria Notice Issued Date-Time: 03/23/2018 16:25 Notice Type: IM Discharge Notice Notice Delivered To: Patient Relationship to Patient: Automatic Pilot Mechanic Name: Delivery Method: HAND - Hand Delivered Maranda Days: Prior Verbal Notification: Recipient Understood Notice: Yes Recipient Signature: Yes Med Rec Note Co-signed by Attending: Coverage Notice Comment: Last DP export: 03/23/18 4:14 Patient Name: SANDRA LYNNE Page 14817 at 1147 All edits/amendments must be made on the electronic document DICTATION DATE: 03/24/18 1147 SUPERVISOR BREW HOUSE: MICHELLE 03/24/18 1147 RPT#: [id number] [place] DATE: STATUS: ADM IN [facility] [address] [place] [address] END OF REPORT
--- NOTE | ~2018-03-20 | MORECARE ---
CASE MANAGEMENT DISCHARGE SUMMARY PATIENT: SANDRA LYNNE UNIT: [id number] ADM DATE: 03/20/18 AGE: 52 : 61 SEX: F ROOM/BED: D.2217 AUTHOR: MARLONDOC PHYSICIAN: REFERRING PHYSICIAN: ANNETTE SULTANA MD DATE OF SERVICE: 03/23/18 Discharge Plan Patient Name: SANDRA LYNNE Facility: [facility]:[place] : 1965 Planned Disposition: Home Anticipated Discharge Date: Discharge Date: Expected LOS: Initial Reviewer: [id number] Initial Review Date: 03/20/2018 Generated: 03/23/18 6:14 pm Comments DCP- Discharge Planning Updated by [email or web address]: Leena Soria on 03/23/18 4:[address] IMM SERVED AND EXPLAINED DCP- Discharge Planning Updated by [email or web address]: Leena Soria on 03/23/18 2:[address] Patient Name: SANDRA LYNNE Admission Status: ER Accout number: [id number] Admission Date: 03-20-2018 : 1965 Admission Diagnosis:PNEUMONIA, UNSPECIFIED ORGANISM Attending: ANNETTE SULTANA Current LOS: 3 Anticipated DC Date: Planned Disposition: Home Primary Insurance: MEDICARE A & B Discharge Planning Comments: CM MET WITH PATIENT TO ASSESS DISCHARGE PLANNING NEEDS. PATIENT STATED THAT SHE LIVES INDEPENDENLY AT HOME WHERE SHE PLANS TO RETURN. ONE OF HER DAUGHTERS WILL BE DRIVING HER HOME AND DISCHARGE. HSE HAS HOME O2, NEBULIZER, O2 CONCENTRATOR ([facility] PATIENT)CANE AND WALKER. SHE DOES NOT THINK THAT SHE WILL NEED HOME HEALTH CM WILL CONTINUE TO FOLLOW AND ASSIST WITH DC PLANNING Dust Collector Attendant: Leena Soria DCP- Discharge Planning Updated by [email or web address]: Elizabeth Olea on 03/21/18 9:[address] LATE ENTRY 09 CONSULT RECEIVED. CM VISITED. THE PATIENT WAS NOT FEELING WELL ENOUGH TO SPEAK WITH THE CM. SHE WAS ADMITTED FROM HOME WITH COMPLAINT OF INCREASED COUGHING AND FEELING BADLY.SHE STATES SHE DID OBTAIN HER PRESCRIPTIONS AND HAD F/U MD APPOINTMENT. SHE WAS DISCHARGED TO HOME 03/14 WITH [employer] TO FOLLOW PATIENT LIVES AT HOME AND HAS A DAUGHTER WHO STAYS WITH HER AND ASSIST. SHE HAS HOME OXYGEN WITH [facility]. HAS OXYGEN, NEBULIZER, WALKER AND CANE. CM WILL FOLLOW TO COMPLETE ASSESSMENT OF NEEDS. DCPIA - Discharge Planning Initial Assessment Updated by [email or web address]: Leena Soria on 03/23/18 3:48 pm * Is the patient Alert and Oriented? Yes * PCP CHASITY ANN LASER BEAM TRIM OPERATOR * Pharmacy [facility] * Preadmission Environment Home with Family * ADLs Independent * Equipment Cane Nebulizer Oxygen Walker * List name and contact numbers for known caregivers / representatives who currently or will assist patient after discharge: CHEKO LYNNE (DAUGHTER) [phone] JAE PRADO (DAUGHTER) [phone] * Verbal permission to speak to the caregivers and representatives has been obtained from the patient. N/A * Community resources currently utilized None * Additional services required to return to the preadmission environment? No * Can the patient safely return to the preadmission environment? Yes * Has this patient been hospitalized within the prior 30 days at any hospital? Yes Coverage Notice Reviewer: [id number] - Leena Soria Notice Issued Date-Time: 03/23/2018 16:25 Notice Type: IM Discharge Notice Notice Delivered To: Patient Relationship to Patient: Rehabilitation Tech Name: Delivery Method: HAND - Hand Delivered Maranda Days: Prior Verbal Notification: Recipient Understood Notice: Yes Recipient Signature: Yes Med Rec Note Co-signed by Attending: Coverage Notice Comment: Last DP export: 03/23/18 2:55 Patient Name: SANDRA LYNNE Page [phone] at 1714 All edits/amendments must be made on the electronic document DICTATION DATE: 03/23/181713 CREATIVE GURU: MICHELLE 03/23/181713 RPT#: [id number] DC DATE: STATUS: ADM IN [facility] [address] [place] [address] END OF REPORT
--- NOTE | ~2018-03-20 | MORECARE ---
CASE MANAGEMENT DISCHARGE SUMMARY PATIENT: SANDRA LYNNE UNIT: [id number] ADM DATE: 03/20/18 AGE: 52 : 61 SEX: F ROOM/BED: D.2217 AUTHOR: DESHAUN MASON PHYSICIAN: REFERRING PHYSICIAN: ANNETTE SULTANA MD DATE OF SERVICE: 03/23/18 Discharge Plan Patient Name: SANDRA LYNNE Facility: [facility]:[place] : 1965 Planned Disposition: Home Anticipated Discharge Date: Discharge Date: Expected LOS: Initial Reviewer: [email or web address] Initial Review Date: 03/20/2018 Generated: 03/23/18 4:55 pm Comments DCP- Discharge Planning Updated by [email or web address]: Leena Soria on 03/23/18 2:[address] Patient Name: SANDRA LYNNE Admission Status: ER Accout number: [id number] Admission Date: 03-20-2018 : 1965 Admission Diagnosis:PNEUMONIA, UNSPECIFIED ORGANISM Attending: ANNETTE SULTANA Current LOS: 3 Anticipated DC Date: Planned Disposition: Home Primary Insurance: MEDICARE A & B Discharge Planning Comments: CM MET WITH PATIENT TO ASSESS DISCHARGE PLANNING NEEDS. PATIENT STATED THAT SHE LIVES INDEPENDENLY AT HOME WHERE SHE PLANS TO RETURN. ONE OF HER DAUGHTERS WILL BE DRIVING HER HOME AND DISCHARGE. HSE HAS HOME O2, NEBULIZER, O2 CONCENTRATOR ([facility] PATIENT)CANE AND WALKER. SHE DOES NOT THINK THAT SHE WILL NEED HOME HEALTH CM WILL CONTINUE TO FOLLOW AND ASSIST WITH DC PLANNING Director Utilization Management: Leena Soria DCP- Discharge Planning Updated by [id number]: Elizabeth Olea on 03/21/18 9:[address] LATE ENTRY 0945 CONSULT RECEIVED. CM VISITED. THE PATIENT WAS NOT FEELING WELL ENOUGH TO SPEAK WITH THE CM. SHE WAS ADMITTED FROM HOME WITH COMPLAINT OF INCREASED COUGHING AND FEELING BADLY.SHE STATES SHE DID OBTAIN HER PRESCRIPTIONS AND HAD F/U MD APPOINTMENT. SHE WAS DISCHARGED TO HOME 03/14 WITH [facility] TO FOLLOW PATIENT LIVES AT HOME AND HAS A DAUGHTER WHO STAYS WITH HER AND ASSIST. SHE HAS HOME OXYGEN WITH [facility]. HAS OXYGEN, NEBULIZER, WALKER AND CANE. CM WILL FOLLOW TO COMPLETE ASSESSMENT OF NEEDS. DCPIA - Discharge Planning Initial Assessment Updated by [id number]: Leena Soria on 03/23/18 3:48 pm * Is the patient Alert and Oriented? Yes * PCP CHASITY ANN APN * Pharmacy [facility] * Preadmission Environment Home with Family * ADLs Independent * Equipment Cane Nebulizer Oxygen Walker * List name and contact numbers for known caregivers / representatives who currently or will assist patient after discharge: CHEKO LYNNE (DAUGHTER) [phone] JAE PRADO (DAUGHTER) [phone] * Verbal permission to speak to the caregivers and representatives has been obtained from the patient. N/A * Community resources currently utilized None * Additional services required to return to the preadmission environment? No * Can the patient safely return to the preadmission environment? Yes * Has this patient been hospitalized within the prior 30 days at any hospital? Yes Last DP export: 03/23/18 2:44 Patient Name: SANDRA LYNNE Page [phone] at 1555 All edits/amendments must be made on the electronic document DICTATION DATE: 03/23/181553 LOCAL TANKER TRUCK DRIVER: MICHELLE 03/23/181553 RPT#: [id number] [place] DATE: STATUS: ADM IN [facility] [address] [place] [address] END OF REPORT
--- NOTE | ~2018-03-20 | MORECARE ---
CASE MANAGEMENT DISCHARGE SUMMARY PATIENT: SANDRA LYNNE UNIT: [id number] ADM DATE: 03/20/18 AGE: 52 : 61 SEX: F ROOM/BED: D.2217 AUTHOR: MARLON,DOC PHYSICIAN: REFERRING PHYSICIAN: ANNETTE SULTANA MD DATE OF SERVICE: 03/23/18 Discharge Plan Patient Name: SANDRA LYNNE Facility: [facility]:[place] : 1965 Planned Disposition: Home Anticipated Discharge Date: Discharge Date: Expected LOS: Initial Reviewer: [email or web address] Initial Review Date: 03/20/2018 Generated: 03/23/18 4:44 pm Comments DCP- Discharge Planning Updated by [email or web address]: Elizabeth Olea on 03/21/18 9:[address] LATE ENTRY 0945 CONSULT RECEIVED. CM VISITED. THE PATIENT WAS NOT FEELING WELL ENOUGH TO SPEAK WITH THE CM. SHE WAS ADMITTED FROM HOME WITH COMPLAINT OF INCREASED COUGHING AND FEELING BADLY.SHE STATES SHE DID OBTAIN HER PRESCRIPTIONS AND HAD F/U MD APPOINTMENT. SHE WAS DISCHARGED TO HOME 03/14 WITH [facility] TO FOLLOW PATIENT LIVES AT HOME AND HAS A DAUGHTER WHO STAYS WITH HER AND ASSIST. SHE HAS HOME OXYGEN WITH [facility]. HAS OXYGEN, NEBULIZER, WALKER AND CANE. CM WILL FOLLOW TO COMPLETE ASSESSMENT OF NEEDS. DCPIA - Discharge Planning Initial Assessment Updated by [email or web address]: Leena Soria on 03/23/18 3:40 pm * Is the patient Alert and Oriented? Yes * PCP CHASITY ANN APN * Pharmacy [facility] * Preadmission Environment Home with Family * ADLs Independent * Equipment Cane Nebulizer Oxygen Walker * List name and contact numbers for known caregivers / representatives who currently or will assist patient after discharge: CHEKO LYNNE (DAUGHTER) [phone] JAE PRADO (DAUGHTER) [phone] * Verbal permission to speak to the caregivers and representatives has been obtained from the patient. N/A * Community resources currently utilized None * Additional services required to return to the preadmission environment? No * Can the patient safely return to the preadmission environment? Yes * Has this patient been hospitalized within the prior 30 days at any hospital? Yes Patient Name: SANDRA LYNNE Page 05160 at 1544 All edits/amendments must be made on the electronic document DICTATION DATE: 03/23/181543 AIR VALVE REPAIRER: MICHELLE 03/23/181543 RPT#: [id number] DC DATE: STATUS: ADM IN [facility] [address] [place] [address] END OF REPORT
[~2018-03-20 15:00] MED LIST changes: +ANUSOL-HC 2.5%30 GM RC; +ANUSOL-HC25 MG RC; +CARAFATE1 G/10 ML GT; +CARDIZEM120 MG PO; +COLACE100 MG PO; +DALIRESP500 MCG PO; +DOXYCYCLINE HY100 M2 PO; +FEXOFENADINE H180 MG PO; +GLUCOPHAGE500 MG PO; +PEPCID40 MG PO
[2018-03-20 17:08] VITALS: BP 102/70
[2018-03-20 17:37] LABS: BASOPHILS 0.1 % (0-2); EOSINOPHILS 0.8 % (0-7); HEMATOCRIT 42.5 % (36.0-48.0); HEMOGLOBIN 14.3 g/dL (12-16); IMMATURE GRANULOCYTES 2.1 % (0-5); LYMPHOCYTES 12.4 % (15-50); MCHC 33.6 g/dL (31.0-37.0); MCV 92.2 fL (80.0-100.0); MEAN PLATELET VOLUME 10.5 fL (7.4-10.4); MONOCYTES 7.4 % (2-11); NEUTROPHILS 77.2 % (40-80); PLATELET COUNT 144 10x3/uL (130-400); RBC 4.61 10x6/uL (4.00-5.40); RDW 14.2 % (11.5-14.5); WBC 13.8 10x3/uL (4.8-10.8)
[2018-03-20 17:59] LABS: APPEARANCE CLEAR (CLEAR); BILIRUBIN NEGATIVE (NEGATIVE); COLOR YELLOW (YELLOW); GLUCOSE 1000 mg/dL (NEGATIVE); KETONE NEGATIVE (NEGATIVE); NITRITE NEGATIVE (NEGATIVE); PROTEIN NEGATIVE (NEGATIVE); RED CELLS - URINE NONE SEEN /hpf (0-5); SPECIFIC GRAVITY 1.015 (1.005-1.020); UROBILINOGEN NORMAL (NORMAL); WHITE CELLS - URINE NSEEN /hpf (0-5)
[2018-03-20 18:01] LABS: ALBUMIN 3.6 g/dL (3.4-5.0); ALKALINE PHOSPHATASE 50 U/L (46-116); ALT (SGPT) 48 U/L (10-68); BILIRUBIN - TOTAL 0.39 mg/dL (0.2-1.3); CALC OSMOLALITY 283 mosm/kg (275-300); CALCIUM 9.2 mg/dL (8.5-10.1); CARBON DIOXIDE 33.2 mmol/L (21.0-32.0); CHLORIDE - SERUM 98 mmol/L (98-107); CREATININE - SERUM 0.7 mg/dL (0.6-1.3); GLUCOSE 151 mg/dL (74-106); POTASSIUM - SERUM 4.2 mmol/L (3.5-5.1); PROTEIN - SERUM 6.4 g/dL (6.4-8.2); SODIUM 139 mmol/L (136-145); UREA NITROGEN 21 mg/dL (7-18); eGFR NON AFRICAN AMERICAN > 90 mL/min (90-120)
[2018-03-20 18:03] LABS: UDS - AMPHET NEGATIVE QUAL (NEGATIVE); UDS - BARB NEGATIVE QUAL (NEGATIVE); UDS - BENZO NEGATIVE QUAL (NEGATIVE); UDS - COCAINE NEGATIVE QUAL (NEGATIVE); UDS - OPIATE NEGATIVE QUAL (NEGATIVE); UDS - PCP NEGATIVE QUAL (NEGATIVE); UDS - THC NEGATIVE QUAL (NEGATIVE)
[2018-03-20 18:14] LABS: CKMB 0.9 U/L (0.0-3.6); THYROID STIMULATING HORMONE 0.76 uIU/mL (0.36-3.74)
[2018-03-20 18:15] LABS: TROPONIN-I < 0.017 ng/mL (0.000-0.060)
[2018-03-20 21:15] VITALS: BP 126/67; Ht 175.3 cm; Wt 113.6 kg
[2018-03-21 00:30] VITALS: BP 126/79
[2018-03-21 04:30] VITALS: BP 115/75
[2018-03-21 08:35] VITALS: BP 128/80
[2018-03-21 09:42] LABS: BASOPHILS 0 % (0-2); EOSINOPHILS 1.5 % (0-7); HEMATOCRIT 39.3 % (36.0-48.0); HEMOGLOBIN 12.9 g/dL (12-16); IMMATURE GRANULOCYTES 1.5 % (0-5); MCH 30.3 pg (26.0-34.0); MCHC 32.8 g/dL (31.0-37.0); MCV 92.3 fL (80.0-100.0); MEAN PLATELET VOLUME 10.7 fL (7.4-10.4); MONOCYTES 6.8 % (2-11); NEUTROPHILS 59.2 % (40-80); PLATELET COUNT 143 10x3/uL (130-400); RBC 4.26 10x6/uL (4.00-5.40); RDW 14.3 % (11.5-14.5); WBC 10.5 10x3/uL (4.8-10.8)
[2018-03-21 09:50] LABS: CALC OSMOLALITY 281 mosm/kg (275-300); CALCIUM 8.6 mg/dL (8.5-10.1); CARBON DIOXIDE 32.3 mmol/L (21.0-32.0); CHLORIDE - SERUM 101 mmol/L (98-107); CREATININE - SERUM 0.7 mg/dL (0.6-1.3); GLUCOSE 133 mg/dL (74-106); SODIUM 139 mmol/L (136-145); UREA NITROGEN 19 mg/dL (7-18); eGFR NON AFRICAN AMERICAN > 90 mL/min (90-120)
[2018-03-21 09:51] LABS: POTASSIUM - SERUM 3.4 mmol/L (3.5-5.1)
[2018-03-21 15:05] VITALS: BP 118/68
[2018-03-21 16:06] VITALS: BP 118/60
[2018-03-21 20:00] VITALS: BP 108/65
[2018-03-22] VITALS (9 sets, daily range): BP systolic 94–122; BP diastolic 55–71
[2018-03-22 06:19] LABS: BASOPHILS 0.1 % (0-2); EOSINOPHILS 2.1 % (0-7); HEMATOCRIT 39.2 % (36.0-48.0); HEMOGLOBIN 12.7 g/dL (12-16); IMMATURE GRANULOCYTES 1.4 % (0-5); MCH 30.5 pg (26.0-34.0); MCHC 32.4 g/dL (31.0-37.0); MEAN PLATELET VOLUME 10.5 fL (7.4-10.4); MONOCYTES 7.3 % (2-11); NEUTROPHILS 62.1 % (40-80); PLATELET COUNT 146 10x3/uL (130-400); RBC 4.17 10x6/uL (4.00-5.40); RDW 14.4 % (11.5-14.5); WBC 9.8 10x3/uL (4.8-10.8)
[2018-03-22 06:31] LABS: CALC OSMOLALITY 286 mosm/kg (275-300); CALCIUM 8.2 mg/dL (8.5-10.1); CARBON DIOXIDE 33.7 mmol/L (21.0-32.0); CHLORIDE - SERUM 105 mmol/L (98-107); CREATININE - SERUM 0.6 mg/dL (0.6-1.3); GLUCOSE 144 mg/dL (74-106); POTASSIUM - SERUM 3.5 mmol/L (3.5-5.1); SODIUM 142 mmol/L (136-145); UREA NITROGEN 16 mg/dL (7-18); eGFR NON AFRICAN AMERICAN > 90 mL/min (90-120)
[2018-03-23 00:35] VITALS: BP 114/63
[2018-03-23 05:48] LABS: BASOPHILS 0.1 % (0-2); EOSINOPHILS 2.4 % (0-7); HEMATOCRIT 41.2 % (36.0-48.0); HEMOGLOBIN 13.5 g/dL (12-16); LYMPHOCYTES 25.6 % (15-50); MCH 30.7 pg (26.0-34.0); MCHC 32.8 g/dL (31.0-37.0); MCV 93.6 fL (80.0-100.0); MEAN PLATELET VOLUME 10.5 fL (7.4-10.4); MONOCYTES 6.3 % (2-11); NEUTROPHILS 64.6 % (40-80); PLATELET COUNT 143 10x3/uL (130-400); RDW 14.2 % (11.5-14.5); WBC 11.1 10x3/uL (4.8-10.8)
[2018-03-23 06:18] LABS: CALCIUM 8.5 mg/dL (8.5-10.1); CARBON DIOXIDE 32.6 mmol/L (21.0-32.0); CHLORIDE - SERUM 104 mmol/L (98-107); GLUCOSE 164 mg/dL (74-106); SODIUM 142 mmol/L (136-145); eGFR NON AFRICAN AMERICAN 79 mL/min (90-120)
[2018-03-23 06:23] LABS: CALC OSMOLALITY 285 mosm/kg (275-300); CREATININE - SERUM 0.8 mg/dL (0.6-1.3); UREA NITROGEN 11 mg/dL (7-18)
[2018-03-23 06:35] VITALS: BP 116/73
[2018-03-23 08:14] VITALS: BP 133/74
[2018-03-23 12:50] VITALS: BP 118/71
[2018-03-23] MEDS ORDERED: Nicoderm [PBKC] TRANSDERM (15:04)
[2018-03-23] MEDS ORDERED: DOXYCYCLINE HY100 M2 PO (15:06)
[2018-03-23] MEDS ORDERED: PREDNISONE10 MG PO (15:06)
[2018-03-23 17:57] VITALS: BP 120/66
[2018-03-23 20:00] VITALS: BP 118/74
[2018-03-24 04:00] VITALS: BP 120/68
[2018-03-24 04:51] LABS: BASOPHILS 0.1 % (0-2); EOSINOPHILS 3.1 % (0-7); HEMOGLOBIN 13.9 g/dL (12-16); LYMPHOCYTES 26.9 % (15-50); MCH 30.8 pg (26.0-34.0); MCHC 33.1 g/dL (31.0-37.0); MCV 92.9 fL (80.0-100.0); MEAN PLATELET VOLUME 10.3 fL (7.4-10.4); MONOCYTES 7.8 % (2-11); NEUTROPHILS 61.1 % (40-80); PLATELET COUNT 137 10x3/uL (130-400); RBC 4.52 10x6/uL (4.00-5.40); RDW 14.2 % (11.5-14.5); WBC 9.1 10x3/uL (4.8-10.8)
[2018-03-24 05:03] LABS: CALC OSMOLALITY 277 mosm/kg (275-300); CALCIUM 8.8 mg/dL (8.5-10.1); CARBON DIOXIDE 29.3 mmol/L (21.0-32.0); CHLORIDE - SERUM 103 mmol/L (98-107); CREATININE - SERUM 0.6 mg/dL (0.6-1.3); GLUCOSE 130 mg/dL (74-106); POTASSIUM - SERUM 4.1 mmol/L (3.5-5.1); SODIUM 138 mmol/L (136-145); UREA NITROGEN 13 mg/dL (7-18); eGFR NON AFRICAN AMERICAN > 90 mL/min (90-120)
[2018-03-24 08:01] VITALS: BP 166/80
[2018-03-24] MEDS ORDERED: ZYVOX600 MG PO (10:12)
[2018-03-25 14:23] LABS: OVA + PARASITE EXAM Final report (())
== END 2018-03-24 14:07 | disposition home or self-care (01) | DRG 689 ==
LOC: D.ER 15:00 → D.MS 18:35 → D.EDHOLD 18:35 → D.MS 19:18
PROVIDERS: Emergency Medicine; Family Medicine; Internal Medicine Nephrology
DX: N39.0 Urinary tract infection, site not specified (principal); J96.01 Acute respiratory failure with hypoxia; G93.41 Metabolic encephalopathy; F17.213 Nicotine dependence, cigarettes, with withdrawal; I10 Essential (primary) hypertension; E11.9 Type 2 diabetes mellitus without complications; K21.9 Gastro-esophageal reflux disease without esophagitis; I27.20 Pulmonary hypertension, unspecified; J44.9 Chronic obstructive pulmonary disease, unspecified

== ENCOUNTER 2018-06-17 08:38 | Day surgery (SDC) | payer MEDICARE ==
[~2018-06-17] VITALS: Ht 175.3 cm; Wt 108.9 kg
[~2018-06-17 08:38] MED LIST changes: +HYDROCODON-ACE1 EAC7 PO; +MORPHINE SULFAT30 M4 PO; +Nicoderm [PBKC] TRANSDERM; +TEMAZEPAM30 MG PO; +ZYVOX600 MG PO
[2018-06-17 09:12] LABS: HEMATOCRIT 44.4 % (36.0-48.0); HEMOGLOBIN 15.1 g/dL (12-16); MCH 30.5 pg (26.0-34.0); MCV 89.7 fL (80.0-100.0); MEAN PLATELET VOLUME 10.8 fL (7.4-10.4); RBC 4.95 10x6/uL (4.00-5.40); WBC 7.9 10x3/uL (4.8-10.8)
[2018-06-17 11:01] VITALS: BP 122/85; Ht 175.3 cm; Wt 108.9 kg
[2018-06-17] MEDS ORDERED: HYDROCODON-ACE1 EA10 PO (14:19)
--- NOTE | 2018-06-17 14:39 | NUR ---
HARDWARE REMOVED CLEANED CHECKED BY PATHOLOGIST, THEN RETURNED TO PATIENT PER HER REQUEST AND DR DELGADO VERBAL OK. José BEDOLLA RN
--- NOTE | 2018-06-17 17:40 | NUR ---
DISCHARGED HOME VIA WHEELCHAIR TO PRIVATE VEHICLE WITH DAUGHTER
--- NOTE | 2018-06-18 09:40 | OP ---
PATIENT NAME: SANDRA LYNNE MEDICAL RECORD: [id number] :[birth year] LOCATION:D.OPS ADMISSION DATE: SURGEON: VAMSI DELGADO MD DATE OF OPERATION: 06/17/2018 PREOPERATIVE DIAGNOSES: Painful hardware of the left shoulder. POSTOPERATIVE DIAGNOSIS: Painful hardware of the left shoulder. PROCEDURE: Removal of painful hardware, left shoulder. SURGEON: Vamsi Delgado MD ANESTHESIA: General. INTRAOPERATIVE COMPLICATIONS: None. SUMMARY OF PATHOLOGIC FINDINGS: The patient indeed had substantial adhesions in and about the plate that was placed for proximal humerus fracture, the humerus had healed nicely. OPERATIVE SUMMARY IN DETAIL: After obtaining the appropriate preoperative orthopedic surgery consent as well as anesthetic consultation, evaluation and clearance, the patient was brought to the operating room and placed on the operating table in supine position. After adequate general laryngeal mask airway was administered, the patient was placed in beach chair position. All pressure points were well padded. She was held firmly to the operating table using vacuum pack suction system. Left upper extremity and shoulder were then prepped and draped in routine sterile fashion. The arm was held in Trimano arm holding device. Deltopectoral incision was created. The cephalic vein was identified and protected throughout the case. Gentle retraction and removal of adhesions over the plate from the subdeltoid bursa was completed with complete exposure of the plate. Serial and sequential removal of screws was followed by removal of the plate. The area was copiously irrigated. The wound was closed with #1 Vicryl followed by 2-0 Vicryl and skin crista. Sterile dressings were applied. The patient was awakened and taken to recovery room in stable condition. All final needle and sponge counts were correct. TRANSINT:[id number] Voice Confirmation ID: [id number] DOCUMENT ID: [id number] VAMSI DELGADO MD at 0940 CC: [id number] DICTATION DATE: 06/17/18 152 INSULATING MACHINE OPERATOR: 06/17/182130 [facility] 06/17/[address] [address]
== END 2018-06-17 17:40 | disposition home or self-care (01) ==
LOC: D.OPS 08:38 → D.PAN 13:15 → D.OPS 17:40
PROVIDERS: Anesthesiology
DX: T84.84XA Pain due to internal orthopedic prosthetic devices, implants and grafts, initial encounter (principal); M25.512 Pain in left shoulder; Z01.812 Encounter for preprocedural laboratory examination

== ENCOUNTER → 2018-07-26 08:20 | Outpatient (CLI) | payer MEDICARE ==
[2018-06-17 11:01] VITALS: BMI 35.5
[~2018-07-26 08:20] MED LIST changes: +HYDROCODON-ACE1 EA10 PO
== END | disposition home or self-care (01) ==
LOC: D.CT 08:20
PROVIDERS: ATTEND Internal Medicine Pulmonary Disease
DX: J44.9 Chronic obstructive pulmonary disease, unspecified (principal); J95.851 Ventilator associated pneumonia; R93.89 Abnormal findings on diagnostic imaging of other specified body structures

== ENCOUNTER 2018-09-29 12:20 | Inpatient (IN) | payer MEDICARE ==
--- NOTE | ~2018-09-29 | HEMODYNAMI ---
PATIENT:SANDRA LYNNE MEDICAL RECORD: [id number] : [birth year] LOCATION:[facility].1203 ADMISSION DATE: 09/29/18 Generatedon:10/01/201813:20 Patient name: SANDRA LYNNE Patient #: [id number] SSN: : 1965 Date of study: 10/01/2018 Page: Of Hemodynamic Procedure Report Patient Data Patient Demographics Procedure consent was obtained First Name: SANDRA Gender: Female Last Name: MAGED : 1965 Middle Initial: KAYLEE Age: 53 year(s) Patient #: [id number] Race: Unknown Additional ID: [id number] Contact details [address]: [address] [place] [address] State: [place] City: [place] Zip code: [address] Past Medical History Allergies Allergen Reaction Date Comments Reported Demerol 10/01/2018 Admission Admission Data Admission Date: 09/29/2018 Admission Time: 12:20 Room #: 1203 Procedure Procedure Types Cath Procedure Peripheral Cath Diagnostic Procedure PICC Procedure Description Procedure Date Procedure Date: 10/01/2018 Procedure Start Time: 13:06 Procedure Staff Name Function Luis Ponce MD Performing Physician Amish Vogel RT Monitor ANTHONY MOSQUEDA RT Scrub Leeann Armendariz RN Nurse Procedure Data Cath Procedure Fluoroscopy Diagnostic fluoroscopy Total fluoroscopy Time: 0.1 time: 0.1 min min Diagnostic fluoroscopy Total fluoroscopy dose: 1 dose: 1 mGy mGy Hemodynamics Rest Pre Cath Intra NCS Post Cath Procedure Log Time Note 12:37:30 Leeann Armendariz RN sent for patient. Start room use. 12:37:38 Time tracking: Regular hours (M-F 7:00 - 5:00) 12:37:44 Patient received from Other to IR Alert and oriented. Tansferred to table in Supine position. 12:37:45 Correct patient and procedure confirmed by team. 12:37:47 Signed procedure consent form obtained from patient. 12:37:49 - 12:37:49 Pre-procedure instructions explained to patient. 12:37:50 Pre-op teaching completed and patient verbalized understanding. 12:38:05 Is patient on blood thinner?No 12:45:19 Use device set IR Diagnostic 12:45:21 Bag Decanter (2002S) opened to sterile field. 12:45:22 Sterile Angiographic Pack opened to sterile field. 12:45:24 Tegaderm 4 x 4 ([id number]) opened to sterile field. 13:02:49 Right Arm was prepped with chlora-prep and draped in sterile fashion. 13:02:51 Alarms reviewed by R. N. 13:02:52 Sharps counted by scrub and verified by R.N. 13:02:55 Physician arrived 13:02:55 --------ALL STOP TIME OUT------ 13:02:59 Final Timeout: patient, procedure, and site verified with staff and physician. All members of the team are in agreement. 13:03:04 Right Arm site verified by team. 13:03:13 Sedation plan: IV Moderate Sedation Medication:Versed, Fentanyl 13:03:21 Fire Safety Assessment: C--Open oxygen or nitrous oxide is being used. 13:06:37 Procedure started. 13:06:37 Full Disclosure recording started 13:06:43 Local anesthetic to right arm with Lidocaine 1% by Luis Ponce MD.INITIAL ACCESS ONLY 13:06:52 PowerPICC 5Fr double lumen catheter opened to sterile field. 13:08:05 Patient allergic to Demerol 13:13:15 PICC line was trimmed to 44cm and advanced to the superior vena cava.Position verified under fluoroscopy. 13:13:20 Procedure ended.(Physican Out) 13:13:32 Fluoroscopy time 00.10 minutes. 13:13:35 Fluoroscopy dose: 1 mGy 13:13:35 Flurop Dose total: 1 13:14:01 statlock and sorbaview dressing applied 13:19:47 Insertion/operative site no bleeding no hematoma. 13:19:50 Procedure and supply charges have been captured, reviewed, submitted an d are correct. 13:19:51 Post procedure instruction explained to patient.Patient verbalizes understanding. 13:19:54 Report given to Other. 13:19:56 Patient transfered to Other with Bed. Device Usage Item Name Manufacture Quantity Catalog Hospital Part Current Minimal Lot# / Number Charge Number Stock Stock Serial# Code Bag Decanter Microtek 1 2001S [id number] [id number] 5 () [employer] Sterile Cardinal 1 [id number] 5 Angiographic Health Pack Tegaderm 4 x 3M 1 [id number] 5 4 (1626W) PowerPICC Bard 1 [id number] [id number] [id number] 5 5Fr double lumen catheter Signature Audit [place] Stage Time Signature Unsigned Intra-Procedure 10/01/2018 Amish 1:20:10 PM Jaspreet RT (R) (CV) Signatures Monitor : Amish Signature : Jaspreet RT Date : Time : [place] [address] [place] [address]
--- NOTE | 2018-09-29 13:05 | NUR ---
INSERTED A 22 G IV TO THE RIGHT WRIST AREA, 1 STICK, PATIENT TOLERATED WELL
[2018-09-29] MEDS ORDERED: LASIX20 MG PO (13:06)
[2018-09-29] MEDS ORDERED: TRAZODONE HCL150 MG PO (13:08)
[2018-09-29] MEDS ORDERED: MUCINEX600 MG PO (13:09)
[2018-09-29] MEDS ORDERED: MIRALAX17 GM PO (13:09)
[2018-09-29] MEDS ORDERED: ZYVOX600 MG PO (13:28)
[2018-09-29] MEDS ORDERED: XOPENEX 0.0.63 MG/3 UPD (13:28)
[2018-09-29] MEDS ORDERED: FLUTICASONE PRO16 GM NASAL (13:29)
[2018-09-29] MEDS ORDERED: CARDIZEM120 MG PO (13:30)
[2018-09-29] MEDS ORDERED: FENOFIBRATE160 MG PO (13:30)
[2018-09-29] MEDS ORDERED: INVOKANA100 MG PO (13:32)
[2018-09-29] MEDS ORDERED: DICLOFENAC SODI50 MG PO (13:32)
[2018-09-29 13:42] VITALS: BP 130/75; BMI 35.0
[2018-09-29 14:35] LABS: BASOPHILS 0.5 % (0-2); EOSINOPHILS 3.9 % (0-7); HEMOGLOBIN 15.4 g/dL (12-16); IMMATURE GRANULOCYTES 0.4 % (0-5); LYMPHOCYTES 27.7 % (15-50); MCHC 34.2 g/dL (31.0-37.0); MCV 87.5 fL (80.0-100.0); MEAN PLATELET VOLUME 10.5 fL (7.4-10.4); MONOCYTES 8.5 % (2-11); RBC 5.14 10x6/uL (4.00-5.40); RDW 16.4 % (11.5-14.5); WBC 10.4 10x3/uL (4.8-10.8)
--- NOTE | 2018-09-29 14:36 | MORECARE ---
CASE MANAGEMENT DISCHARGE SUMMARY PATIENT: SANDRA MYERS UNIT: [id number] ADM DATE: 09/29/18 AGE: 53 : 61 SEX: F ROOM/BED: D.1203 AUTHOR: DESHAUN MASON PHYSICIAN: REFERRING PHYSICIAN: SADIQ REARDON MD DATE OF SERVICE: 09/29/18 Discharge Plan Patient Name: SANDRA MYERS Facility: [facility]:[place] : 1965 Planned Disposition: Home Anticipated Discharge Date: 10/01/18 Discharge Date: Expected LOS: 2 Initial Reviewer: [email or web address] Initial Review Date: 09/29/2018 Generated: 09/29/18 3:35 pm Comments DCP- Discharge Planning Updated by [email or web address]: Edwina Lind on 09/29/18 1:[address] Patient Name: SANDRA MYERS Admission Status: Elective Accout number: [id number] Admission Date: 09-29-2018 : 1965 Admission Diagnosis: Attending: SADIQ BEAN Current LOS: 1 Anticipated DC Date: 10-01-2018 Planned Disposition: Home Primary Insurance: MEDICARE A & B Discharge Planning Comments: CM met with patient to complete initial dc planning assessment. CM educated patient on the CM role and verbal consent given by patient to complete assessment. CM verified patient's address, phone number, and emergency contact phone numbers. Patient lives at home with her daughter, Anju. She reports she is independent in her care at home. At discharge patient plans to return home and feels this is a safe discharge. CM discussed availability of home health, rehab services, and medical equipment. Patient would like a Shower Chair at discharge. JALEESA signed for [facility] or any company that will deliver to her. Patient denied further known discharge needs at this time. Patient reports her daughter, Anju will transport him/her home at time of discharge. CM will continue to follow and will assist as needed with dc plans/needs. Corrections Lieutenant: Edwina Lind RN, [facility] DCPIA - Discharge Planning Initial Assessment Updated by [email or web address]: Edwina Lind on 09/29/18 2:30 pm * Is the patient Alert and Oriented? Yes * How many steps to enter\exit or inside your home? * PCP Dr. Reardon * Pharmacy [facility] * Preadmission Environment Home with Family * ADLs Independent * Equipment Cane Glucometer Oxygen Rolling Walker * Other Equipment Has O2 through [facility]. No portability * List name and contact numbers for known caregivers / representatives who currently or will assist patient after discharge: Eleonora Myers - daughter - [phone] Daisy Carlson - daughter - [phone] * Verbal permission to speak to the caregivers and representatives has been obtained from the patient. Yes * Community resources currently utilized None * Additional services required to return to the preadmission environment? Yes * Can the patient safely return to the preadmission environment? Yes * Has this patient been hospitalized within the prior 30 days at any hospital? No Patient Name: SANDRA MYERS Page 52743 at 1436 All edits/amendments must be made on the electronic document DICTATION DATE: 09/29/185 LAUNDRY TECH: MICHELLE 09/29/18 1435 RPT#: [id number] DC DATE: STATUS: ADM IN [facility] [address] [place] [address] END OF REPORT
[2018-09-29 14:38] LABS: ALBUMIN 3.8 g/dL (3.4-5.0); ANION GAP 12.5 mmol/L (8-16); BILIRUBIN - TOTAL 0.27 mg/dL (0.2-1.3); CALCIUM 8.6 mg/dL (8.5-10.1); CARBON DIOXIDE 26.6 mmol/L (21.0-32.0); POTASSIUM - SERUM 4.1 mmol/L (3.5-5.1); PROTEIN - SERUM 6.5 g/dL (6.4-8.2)
[2018-09-29 14:41] LABS: PLATELET COUNT 217 10x3/uL (130-400)
[2018-09-29 15:09] LABS: APTT 26.9 SECONDS (22.8-39.4); PROTIME 12.7 SECONDS (11.6-15.0)
[2018-09-29] MEDS ORDERED: HYDROCODON-ACE1 EA10 PO (15:12)
--- NOTE | 2018-09-29 16:28 | NUR ---
BLOOD SUGAR OF 112, NO COVERAGE NEEDED PER S/S. IVPB CEFEPIME GIVEN HUNG AT THIS TIME. EGGCRATE AT BEDSIDE, PT WANTS TO WAIT UNTIL SHE GETS UP TO BATHROOM TO HAVE EGGCRATE PLACED ON BED. PT DENIES ANY NEEDS, CALL LIGHT IN REACH, FAMILY AT BEDSIDE, NAD NOTED, WILL CONTINUE PLAN OF CARE.
[2018-09-29 16:44] LABS: APPEARANCE CLEAR (CLEAR); BILIRUBIN NEGATIVE (NEGATIVE); COLOR YELLOW (YELLOW); GLUCOSE NEGATIVE (NEGATIVE); KETONE NEGATIVE (NEGATIVE); NITRITE NEGATIVE (NEGATIVE); PROTEIN NEGATIVE (NEGATIVE); SPECIFIC GRAVITY 1.015 (1.005-1.020); UROBILINOGEN NORMAL (NORMAL)
[2018-09-29 17:17] VITALS: BP 142/86
[2018-09-29 20:00] VITALS: BP 115/73
[2018-09-30] VITALS (7 sets, daily range): BP systolic 109–157; BP diastolic 59–77; BMI 39.4
[2018-09-30 07:09] LABS: BASOPHILS 0 % (0-2); EOSINOPHILS 0 % (0-7); HEMATOCRIT 43.4 % (36.0-48.0); IMMATURE GRANULOCYTES 0.3 % (0-5); LYMPHOCYTES 11.6 % (15-50); MCH 30.1 pg (26.0-34.0); MCHC 34.6 g/dL (31.0-37.0); MCV 87.1 fL (80.0-100.0); MONOCYTES 1.9 % (2-11); NEUTROPHILS 86.2 % (40-80); PLATELET COUNT 213 10x3/uL (130-400); RBC 4.98 10x6/uL (4.00-5.40); RDW 15.6 % (11.5-14.5); WBC 9.3 10x3/uL (4.8-10.8)
[2018-09-30 07:21] LABS: CALC OSMOLALITY 286 mosm/kg (275-300); CALCIUM 8.8 mg/dL (8.5-10.1); CARBON DIOXIDE 26.5 mmol/L (21.0-32.0); CHLORIDE - SERUM 105 mmol/L (98-107); CREATININE - SERUM 0.8 mg/dL (0.6-1.3); POTASSIUM - SERUM 4.6 mmol/L (3.5-5.1); SODIUM 139 mmol/L (136-145); UREA NITROGEN 18 mg/dL (7-18); eGFR NON AFRICAN AMERICAN 79 mL/min (90-120)
[2018-09-30 07:24] LABS: GLUCOSE 216 mg/dL (74-106)
--- NOTE | 2018-09-30 07:57 | NUR ---
RECIEVED REPORT. PATIENT IS EATTING BREAKFAST AT THIS TIME. IV IN RIGHT WRIST IS INTACT. DRESSING IN PLACE AND ADHEARED TO SKIN. PATIENT DENIES ANY NEEDS AT THIS TIME.
--- NOTE | 2018-09-30 09:02 | NUR ---
IV IN RIGHT FOREARM REMOVED BECAUSE IT WAS PAINFUL AND INFILTRATED. CATHETER INTACT, PATIENT TOLERSTED. NEW IV 22G PLACED IN LEFT FOREARM ONE STICK. PATIENT TOLERATED.
--- NOTE | 2018-09-30 19:22 | NUR ---
GREETED PATIENT AND INTRODUCED MYSELF HER NURSE. PATIENT IS LAYING IN BED IN SUPINE POSITION. O2 AT 2L IN USE VIA NC. DENIES ANY NEEDS AT THIS TIME. CALL LIGHT IN REACH.
[2018-10-01 03:43] VITALS: BP 123/69
[2018-10-01 06:44] LABS: CALC OSMOLALITY 285 mosm/kg (275-300); CALCIUM 8.5 mg/dL (8.5-10.1); CARBON DIOXIDE 26.9 mmol/L (21.0-32.0); CHLORIDE - SERUM 106 mmol/L (98-107); CREATININE - SERUM 0.8 mg/dL (0.6-1.3); GLUCOSE 173 mg/dL (74-106); MAGNESIUM - SERUM 2.6 mg/dL (1.8-2.4); PHOSPHOROUS 3.9 mg/dL (2.5-4.9); POTASSIUM - SERUM 4.7 mmol/L (3.5-5.1); SODIUM 140 mmol/L (136-145); UREA NITROGEN 21 mg/dL (7-18); eGFR NON AFRICAN AMERICAN 79 mL/min (90-120)
[2018-10-01 07:00] LABS: BASOPHILS 0.1 % (0-2); EOSINOPHILS 0 % (0-7); HEMATOCRIT 41.2 % (36.0-48.0); IMMATURE GRANULOCYTES 0.4 % (0-5); LYMPHOCYTES 8.7 % (15-50); MCH 29.6 pg (26.0-34.0); MCV 87.1 fL (80.0-100.0); MEAN PLATELET VOLUME 10.7 fL (7.4-10.4); NEUTROPHILS 86.8 % (40-80); PLATELET COUNT 197 10x3/uL (130-400); RBC 4.73 10x6/uL (4.00-5.40); RDW 15.7 % (11.5-14.5)
[2018-10-01 07:08] LABS: WBC 14.9 10x3/uL (4.8-10.8)
[2018-10-01 08:32] VITALS: BP 119/60
--- NOTE | 2018-10-01 08:34 | NUR ---
IV IN LEFT FA INFILTRATED, REMOVED THIS. PT HAS BEEN STUCK MULTIPLE TIMES THIS HOSPITAL VISIT AND NEEDS IV ABX. PER DR SULTANA NEW ORDER FOR PICC LINE, ORDER NOTED. CALL LIGHT IN REACH, WILL CONTINUE TO MONITOR.
[2018-10-01 12:30] VITALS: BP 120/65
--- NOTE | 2018-10-01 13:16 | NUR ---
I have reviewed this patient and I concur with the Shift Assessment completed by the Licensed Practical Nurse today this shift.
--- NOTE | 2018-10-01 13:48 | NUR ---
PATIENT ARRIVED BACK TO THE FLOOR AFTER A PICC LINE WAS PLACED IN THE IR. NURSE FROM IR GAVE VERBAL ORDER, THE PATIENT CAN EAT NOW
[2018-10-01 16:29] VITALS: BP 99/62
--- NOTE | 2018-10-01 19:48 | NUR ---
EVENING ROUNDS COMPLETED. REPORT RECEIVED. PT SITTING UP IN BED WITH EYES OPEN, RR EVEN AND UNLABORED. OXYGEN AT 2 LITERS BY NASAL CANNULA. NO S/S OF DISTRESS NOTED. INTRODUCED SELF TO PT. PT DENIES FURTHER NEEDS AT THIS TIME. CALL LIGHT IN REACH. WILL CTM.
[2018-10-02 00:39] VITALS: BP 99/48
[2018-10-02 04:06] VITALS: BP 113/58
--- NOTE | 2018-10-02 05:59 | NUR ---
PT SITTING UP IN BED WITH EYES OPEN, RR EVEN AND UNLABORED. ADMINISTERED ORDERED ANALGESIC FOR COMPLAINTS OF PAIN IN BACK. PT DENIES FURTHER NEEDS AT THIS TIME. CALL LIGHT IN REACH. WILL CTM.
--- NOTE | 2018-10-02 06:42 | NUR ---
I have reviewed this patient and I concur with the Shift Assessment completed by the Licensed Practical Nurse today this shift.
[2018-10-02 07:29] LABS: BASOPHILS 0 % (0-2); EOSINOPHILS 0 % (0-7); HEMATOCRIT 42.7 % (36.0-48.0); HEMOGLOBIN 14.3 g/dL (12-16); IMMATURE GRANULOCYTES 0.4 % (0-5); LYMPHOCYTES 7.8 % (15-50); MCH 29.6 pg (26.0-34.0); MCHC 33.5 g/dL (31.0-37.0); MCV 88.4 fL (80.0-100.0); MEAN PLATELET VOLUME 10.9 fL (7.4-10.4); MONOCYTES 2.6 % (2-11); NEUTROPHILS 89.2 % (40-80); PLATELET COUNT 129 10x3/uL (130-400); RBC 4.83 10x6/uL (4.00-5.40); RDW 16.1 % (11.5-14.5)
[2018-10-02 07:43] LABS: ANION GAP 12.8 mmol/L (8-16); CALCIUM 8.6 mg/dL (8.5-10.1); CREATININE - SERUM 1.1 mg/dL (0.6-1.3); MAGNESIUM - SERUM 2.5 mg/dL (1.8-2.4); PHOSPHOROUS 3.5 mg/dL (2.5-4.9); POTASSIUM - SERUM 4.8 mmol/L (3.5-5.1)
--- NOTE | 2018-10-02 07:55 | NUR ---
AAOX4. ON 1.5LPM VIA NC, RIGHT UPPER ARM PICC, PATENT, DRESSING C/D/I, INFUSING NS AT 50ML/HR. USES CANE FOR AMBULATION, SHORT OF BREATH, HOB ELEVEATED TO 45 DEGREES, JUST FINISHED BREATHING TREATMENT PER RESPIRATORY, DENIES ANY CURRENT NEEDS OR DISCOMFORTS, BED LOWERED AND LOCKED, CALL LIGHT WITHIN REACH. CPOC
[2018-10-02 09:05] VITALS: BP 134/71
--- NOTE | 2018-10-02 09:24 | NUR ---
ADMINISTERED PRN LASIX PER REQUEST, BP STABLE, LUNGS WHEEZING IN ALL BISHOP, MILD CRACKLES LEFT LOWER LOBE. DENIES ANY NEEDS OR DISCOMFORTS, BED LOWERED AND LOCKED, CALL LIGHT WITHIN REACH. CPOC
[2018-10-02 12:56] VITALS: BP 102/75
--- NOTE | 2018-10-02 15:30 | NUR ---
AAOX4. ON 1.5LPM VIA NC, PICC LINE TO RIGHT UPPER ARM, PATENT, INFUSING NS AT 50ML/HR WITH ABX, C/O FEELING "BAD". OFFERED TO ASSIST HER WITH SHOWER, REFUSED, DENIES ANY OTHER NEEDS OR DISCOMFORTS, BED LOWERED AND LOCKED, CALL LIGHT WITHIN REACH. CPOC
[2018-10-02 16:00] VITALS: BP 136/72
--- NOTE | 2018-10-02 19:05 | NUR ---
PATIENT RESTING IN BED WITH NO S/S OF DISTRESS AND DENIES NEEDS AT THIS TIME. BED IN LOWEST POSITION AND CALL LIGHT WITHIN REACH. ENCOURAGED THE PATIENT TO CALL IF SHE HAS NEEDS. WILL CONTINUE TO MONITOR.
[2018-10-02 19:44] VITALS: BP 137/75
[2018-10-03 00:28] VITALS: BP 124/65
[2018-10-03 04:00] VITALS: BP 130/70
[2018-10-03 05:49] LABS: BASOPHILS 0 % (0-2); EOSINOPHILS 0 % (0-7); HEMATOCRIT 43.3 % (36.0-48.0); HEMOGLOBIN 14.5 g/dL (12-16); IMMATURE GRANULOCYTES 0.6 % (0-5); LYMPHOCYTES 8.5 % (15-50); MCH 29.6 pg (26.0-34.0); MCHC 33.5 g/dL (31.0-37.0); MCV 88.4 fL (80.0-100.0); MEAN PLATELET VOLUME 10.9 fL (7.4-10.4); MONOCYTES 4.1 % (2-11); NEUTROPHILS 86.8 % (40-80); PLATELET COUNT 215 10x3/uL (130-400); RDW 16.2 % (11.5-14.5); WBC 12.7 10x3/uL (4.8-10.8)
[2018-10-03 06:24] LABS: ANION GAP 10.8 mmol/L (8-16); CALCIUM 8.9 mg/dL (8.5-10.1); CARBON DIOXIDE 28.5 mmol/L (21.0-32.0); MAGNESIUM - SERUM 2.5 mg/dL (1.8-2.4); PHOSPHOROUS 3.7 mg/dL (2.5-4.9); POTASSIUM - SERUM 4.3 mmol/L (3.5-5.1)
--- NOTE | 2018-10-03 07:07 | NUR ---
PT REFUSES TO DO THE METANEB AND THE VEST THERAPY. SHE ONLY WANTS TO DO THE VEST.
[2018-10-03 07:56] VITALS: BP 120/56
--- NOTE | 2018-10-03 10:31 | NUR ---
CONTACTED Rx FOR ATB DUE AT 729, WILL GIVE WHEN ARRIVES FROM RX
[2018-10-03 12:10] VITALS: BP 130/78
[2018-10-03 15:55] VITALS: BP 125/64
--- NOTE | 2018-10-03 19:17 | NUR ---
PATIENT RESTING IN BED AND DENIES NEEDS AT THIS TIME. BED IN LOWEST POSITION AND CALL LIGHT WITHIN REACH. ENCOURAGED THE PATIENT TO CALL IF SHE HAS NEEDS. WILL CONTINUE TO MONITOR.
[2018-10-03 19:52] VITALS: BP 131/73
--- NOTE | 2018-10-03 20:51 | NUR ---
PT DOES WELL WITH IS, FLUTTER AND VEST THERAPY. SHE REFUSES THE METANEB. VEST THERAPY IS DONE WITH NEBULIZED BREATHING TREATMENT
[2018-10-04 04:00] VITALS: BP 128/71
[2018-10-04 06:46] LABS: BASOPHILS 0.1 % (0-2); EOSINOPHILS 0 % (0-7); HEMATOCRIT 41.8 % (36.0-48.0); HEMOGLOBIN 13.8 g/dL (12-16); IMMATURE GRANULOCYTES 0.7 % (0-5); MCH 29.3 pg (26.0-34.0); MCV 88.7 fL (80.0-100.0); MEAN PLATELET VOLUME 10.6 fL (7.4-10.4); MONOCYTES 5.3 % (2-11); NEUTROPHILS 84.9 % (40-80); PLATELET COUNT 197 10x3/uL (130-400); RBC 4.71 10x6/uL (4.00-5.40); RDW 16.3 % (11.5-14.5); WBC 10.5 10x3/uL (4.8-10.8)
[2018-10-04 07:02] LABS: ANION GAP 10.1 mmol/L (8-16); CALCIUM 8.7 mg/dL (8.5-10.1); CARBON DIOXIDE 30.5 mmol/L (21.0-32.0); CREATININE - SERUM 0.9 mg/dL (0.6-1.3); MAGNESIUM - SERUM 2.5 mg/dL (1.8-2.4); POTASSIUM - SERUM 4.6 mmol/L (3.5-5.1)
--- NOTE | 2018-10-04 07:18 | NUR ---
AM ROUNDS PT RESTING COMFORTABLY IN BED, A/O X4, SHALLOW BREATHING ON 1.5L. RT PICC INFUSING NS AT 50. PT ASKING IF SHE WILL HAVE BRONCH TODAY. INFORMED PT THAT I DID NOT KNOW BUT I WOULD CHECK AND LET HER KNOW. PT DENIES ANY NEEDS AT THIS TIME. CALL LIGHT IN REACH, NAD NOTED, WILL CONTINUE PLAN OF CARE.
--- NOTE | 2018-10-04 11:23 | NUR ---
BLOOD SUGAR OF 197, 4UNITS OF HUMALOG GIVEN PER S/S. PT DENIES ANY NEEDS AT THIS TIME. CALL LIGHT IN REACH, NAD NOTED, WILL CONTINUE TO MONITOR.
[2018-10-04 11:57] VITALS: BP 96/52
--- NOTE | 2018-10-04 14:05 | NUR ---
Nutrition follow up Diabetic diet with 100% intake of breakfast and lunch today BG 197, 240 today Pt reports eating well. Pt has no questions about nutrition NPO past MN for bronch tomorrow RD following per protocol
[2018-10-04 15:41] VITALS: BP 100/61
--- NOTE | 2018-10-04 16:40 | NUR ---
BLOOD SUGAR OF 175, 4UNITS OF HUMULIN GIVEN PER S/S. PT EATING A SALAD, DENIES ANY NEEDS AT THIS TIME. FAMILY AT BEDSIDE, NAD NOTED.
[2018-10-04 19:46] VITALS: BP 129/71
[2018-10-05] VITALS: BP 122/69
[2018-10-05 04:30] VITALS: BP 122/69
[2018-10-05 06:30] LABS: BASOPHILS 0 % (0-2); EOSINOPHILS 0 % (0-7); HEMATOCRIT 42.4 % (36.0-48.0); HEMOGLOBIN 14.1 g/dL (12-16); IMMATURE GRANULOCYTES 0.6 % (0-5); LYMPHOCYTES 8.9 % (15-50); MCH 29.4 pg (26.0-34.0); MCHC 33.3 g/dL (31.0-37.0); MCV 88.5 fL (80.0-100.0); MONOCYTES 3.9 % (2-11); NEUTROPHILS 86.6 % (40-80); PLATELET COUNT 209 10x3/uL (130-400); RBC 4.79 10x6/uL (4.00-5.40); RDW 16.3 % (11.5-14.5); WBC 11.1 10x3/uL (4.8-10.8)
[2018-10-05 06:37] LABS: ALBUMIN 3.1 g/dL (3.4-5.0); ALKALINE PHOSPHATASE 62 U/L (46-116); ALT (SGPT) 23 U/L (10-68); BILIRUBIN - TOTAL 0.22 mg/dL (0.2-1.3); CALC OSMOLALITY 299 mosm/kg (275-300); CALCIUM 8.7 mg/dL (8.5-10.1); CARBON DIOXIDE 31.3 mmol/L (21.0-32.0); CHLORIDE - SERUM 104 mmol/L (98-107); MAGNESIUM - SERUM 2.6 mg/dL (1.8-2.4); PHOSPHOROUS 3.9 mg/dL (2.5-4.9); POTASSIUM - SERUM 4.4 mmol/L (3.5-5.1); PROTEIN - SERUM 5.9 g/dL (6.4-8.2); SODIUM 142 mmol/L (136-145); UREA NITROGEN 26 mg/dL (7-18); eGFR NON AFRICAN AMERICAN 61 mL/min (90-120)
[2018-10-05 06:41] LABS: GLUCOSE 315 mg/dL (74-106)
[2018-10-05 07:11] LABS: C-REACTIVE PROTEIN < 0.2 mg/dL (0.0-0.9)
--- NOTE | 2018-10-05 07:27 | NUR ---
INITIAL ROUNDING ON THE PATIENT. SHE IS AWAKE AND SITTING UP IN BED, O2 VIA NC IN PLACE, CALL LIGHT IN REACH. CONSENTS IN CHART SIGNED AND PATIENT IS NPO AWAITING PROCEDURE. MG LEVEL A BIT LOW AND WILL COVER WITH 0900 MEDS, AFTER PROCEDURE.
[2018-10-05 07:32] VITALS: BP 134/62
--- NOTE | 2018-10-05 09:50 | NUR ---
SPOKE WITH XAVIER, THE RT. SHE GAVE A VERBAL ORDER TO GIVE PATIENT HER MORNING MEDS WITH THE EXCEPTION OF LOVENOX AND NASAL SPRAYS, COUGH MEDS.
--- NOTE | 2018-10-05 13:01 | NUR ---
PATIENT ARRIVED BACK TO HER ROOM, AWAKE AND ALERT. SHE CAN EAT AND DRINK AT 2:30PM
--- NOTE | 2018-10-05 13:15 | NUR ---
BLOOD SUGAR CHECKED--136
[2018-10-05 17:17] VITALS: BP 112/65
[2018-10-05 20:00] VITALS: BP 132/71
--- NOTE | 2018-10-06 00:27 | NUR ---
REST QUIETLY IN RIGHT SIDE, EYE CLOSE, CALL LIGHT IN REACH.
[2018-10-06 04:00] VITALS: BP 106/54
--- NOTE | 2018-10-06 04:33 | NUR ---
REST IN BED, RESP EVEN, NO S/S OF DISTRESS. CONTINUE PLAN OF CARE.
[2018-10-06 06:13] LABS: ANION GAP 9.5 mmol/L (8-16); BILIRUBIN - TOTAL 0.35 mg/dL (0.2-1.3); CALCIUM 8.6 mg/dL (8.5-10.1); CARBON DIOXIDE 31.1 mmol/L (21.0-32.0); CREATININE - SERUM 0.9 mg/dL (0.6-1.3); POTASSIUM - SERUM 4.6 mmol/L (3.5-5.1); PROTEIN - SERUM 5.7 g/dL (6.4-8.2)
[2018-10-06 06:55] LABS: BASOPHILS 0 % (0-2); EOSINOPHILS 0 % (0-7); HEMATOCRIT 42.3 % (36.0-48.0); IMMATURE GRANULOCYTES 0.6 % (0-5); LYMPHOCYTES 7.3 % (15-50); MCH 29.5 pg (26.0-34.0); MCHC 33.1 g/dL (31.0-37.0); MCV 89.1 fL (80.0-100.0); MONOCYTES 5.7 % (2-11); NEUTROPHILS 86.4 % (40-80); PLATELET COUNT 190 10x3/uL (130-400); RBC 4.75 10x6/uL (4.00-5.40); RDW 16.1 % (11.5-14.5); WBC 10.8 10x3/uL (4.8-10.8)
--- NOTE | 2018-10-06 07:00 | NUR ---
INITIAL ROUNDING, PATIENT IS AWAKE AND HAVING A BREATHING TX AT THIS TIME. DENIES ANY NEEDS AT THIS TIME CALL LIGHT IN REACH
[2018-10-06 07:19] VITALS: BP 125/84
[2018-10-06 14:59] LABS: APPEARANCE CLEAR (CLEAR); BILIRUBIN NEGATIVE (NEGATIVE); COLOR STRAW (YELLOW); GLUCOSE 250 mg/dL (NEGATIVE); KETONE NEGATIVE (NEGATIVE); NITRITE NEGATIVE (NEGATIVE); PROTEIN NEGATIVE (NEGATIVE); SPECIFIC GRAVITY 1.005 (1.005-1.020); UROBILINOGEN NORMAL (NORMAL)
[2018-10-06 16:02] VITALS: BP 113/66
[2018-10-06 17:10] LABS: AFB SPECIMEN PROCESSING Concentration (())
[2018-10-06 19:49] VITALS: BP 124/81
--- NOTE | 2018-10-06 19:55 | NUR ---
EVENING ROUNDS MADE. PT SITTING UP ON SIDE OF BED. DENIES PAIN AT THIS TIME. VITALS STABLE. FALL PRECAUTIONS IN PLACE. BED LOWERED AND LOCKED. CL IN REACH. WILL CTM.
--- NOTE | 2018-10-07 00:35 | NUR ---
CHECKED MIDNIGHT VITAL SIGNS. RESULT SEE FLOWSHEET.
[2018-10-07 00:48] VITALS: BP 113/69
[2018-10-07 05:33] VITALS: BP 121/63
[2018-10-07 06:16] LABS: BASOPHILS 0 % (0-2); EOSINOPHILS 0 % (0-7); HEMATOCRIT 40.2 % (36.0-48.0); HEMOGLOBIN 13.5 g/dL (12-16); IMMATURE GRANULOCYTES 0.5 % (0-5); LYMPHOCYTES 8.1 % (15-50); MCH 29.5 pg (26.0-34.0); MCHC 33.6 g/dL (31.0-37.0); MCV 87.8 fL (80.0-100.0); MEAN PLATELET VOLUME 10.2 fL (7.4-10.4); MONOCYTES 4.9 % (2-11); NEUTROPHILS 86.5 % (40-80); PLATELET COUNT 178 10x3/uL (130-400); RBC 4.58 10x6/uL (4.00-5.40); RDW 15.9 % (11.5-14.5)
[2018-10-07 06:35] LABS: CALC OSMOLALITY 289 mosm/kg (275-300); CALCIUM 8.5 mg/dL (8.5-10.1); CARBON DIOXIDE 33.2 mmol/L (21.0-32.0); CHLORIDE - SERUM 105 mmol/L (98-107); CREATININE - SERUM 0.8 mg/dL (0.6-1.3); GLUCOSE 214 mg/dL (74-106); POTASSIUM - SERUM 4.8 mmol/L (3.5-5.1); SODIUM 141 mmol/L (136-145); UREA NITROGEN 21 mg/dL (7-18); eGFR NON AFRICAN AMERICAN 79 mL/min (90-120)
--- NOTE | 2018-10-07 06:45 | NUR ---
INITIAL ROUNGING, PATIENT IS AWAKE AND HAVING A BREATHING TX, DENIES ANY NEEDS AT THIS TIME. CALL SRIRAM IN REACH
[2018-10-07 08:11] VITALS: BP 114/53
[2018-10-07] MEDS ORDERED: DALIRESP500 MCG PO (10:31)
[2018-10-07] MEDS ORDERED: DIFLUCAN100 MG PO (10:31)
[2018-10-07] MEDS ORDERED: FLORAJEN3 CAPS460 MG PO (10:32)
[2018-10-07] MEDS ORDERED: IPRAT-ALBUT 0.5-3 ML UPD (10:32)
[2018-10-07] MEDS ORDERED: PREDNISONE20 MG PO (10:34)
--- NOTE | 2018-10-07 12:00 | NUR ---
YURI Rowell, [employer] RECOVERY WORKER CAME TO REMOVE THE RIGHT UPPER ARM PICC
--- NOTE | 2018-10-07 12:14 | MORECARE ---
CASE MANAGEMENT DISCHARGE SUMMARY PATIENT: SANDRA MYERS UNIT: [id number] ADM DATE: 09/29/18 AGE: 53 : 61 SEX: F ROOM/BED: D.1203 AUTHOR: DESHAUN MASON PHYSICIAN: REFERRING PHYSICIAN: SADIQ REARDON MD DATE OF SERVICE: 10/07/18 Discharge Plan Patient Name: SANDRA MYERS Facility: [facility]:[employer] : 1965 Planned Disposition: Home Anticipated Discharge Date: 10/01/18 Discharge Date: 10/07/2018 Expected LOS: 2 Initial Reviewer: [email or web address] Initial Review Date: 09/29/2018 Generated: 10/07/18 1:14 pm Comments DCP- Discharge Planning Updated by [email or web address]: Maite Yip on 10/07/18 11:[address] Patient Name: SANDRA MYERS Encounter No: [id number] : 1965 Primary Insurance: MEDICARE A & B Anticipated DC Date: 10-01-2018 Planned Disposition: Home External Planned Provider: : DCP follow-up note: Patient and family in agreement with discharge plan. Patient denies any discharge needs. No changes to plan. Case management will follow and assist as needed. Maite Yip DCP- Discharge Planning Updated by [email or web address]: Edwina Lind on 09/29/18 1:[address] Patient Name: SANDRA MYERS Admission Status: Elective Accout number: [id number] Admission Date: 09-29-2018 : 1965 Admission Diagnosis: Attending: SADIQ BEAN Current LOS: 1 Anticipated DC Date: 10-01-2018 Planned Disposition: Home Primary Insurance: MEDICARE A & B Discharge Planning Comments: CM met with patient to complete initial dc planning assessment. CM educated patient on the CM role and verbal consent given by patient to complete assessment. CM verified patient's address, phone number, and emergency contact phone numbers. Patient lives at home with her daughter, Anju. She reports she is independent in her care at home. At discharge patient plans to return home and feels this is a safe discharge. CM discussed availability of home health, rehab services, and medical equipment. Patient would like a Shower Chair at discharge. JALEESA signed for [facility] or any company that will deliver to her. Patient denied further known discharge needs at this time. Patient reports her daughter, Anju will transport him/her home at time of discharge. CM will continue to follow and will assist as needed with dc plans/needs. Kiln Charger: Edwina Lind RN, [facility] DCPIA - Discharge Planning Initial Assessment Updated by [id number]: Edwina Lind on 09/29/18 2:30 pm * Is the patient Alert and Oriented? Yes * How many steps to enter\exit or inside your home? * PCP Dr. Reardon * Pharmacy [facility] * Preadmission Environment Home with Family * ADLs Independent * Equipment Cane Glucometer Oxygen Rolling Walker * Other Equipment Has O2 through [facility]. No portability * List name and contact numbers for known caregivers / representatives who currently or will assist patient after discharge: Eleonora Myers - daughter - [phone] Daisy Carlson - daughter - [phone] * Verbal permission to speak to the caregivers and representatives has been obtained from the patient. Yes * Community resources currently utilized None * Additional services required to return to the preadmission environment? Yes * Can the patient safely return to the preadmission environment? Yes * Has this patient been hospitalized within the prior 30 days at any hospital? No Coverage Notice Reviewer: [id number] Rudy Espinoza Notice Issued Date-Time: 10/05/2018 13:35 Notice Type: IM Discharge Notice Notice Delivered To: Patient Relationship to Patient: Self Information Assurance Manager Name: Delivery Method: HAND - Hand Delivered Maranda Days: Prior Verbal Notification: Recipient Understood Notice: Yes Recipient Signature: Yes Med Rec Note Co-signed by Attending: Coverage Notice Comment: Last DP export: 09/29/18 1:36 pm Patient Name: SANDRA MYERS Page [phone] at 1214 All edits/amendments must be made on the electronic document DICTATION DATE: 10/07/181212 RESEARCH ASSOCIATE POLICY: MICHELLE 10/07/181212 RPT#: [id number] DC DATE:10/07/18 STATUS: DIS IN [facility] [address] [place] [address] END OF REPORT
[2018-11-27 14:08] LABS: ACID FAST CULTURE Negative (()); ACID FAST SMEAR Negative (())
== END 2018-10-07 12:03 | disposition home or self-care (01) | DRG 178 ==
LOC: D.M3 12:20
PROVIDERS: Family Medicine; Internal Medicine Nephrology; Internal Medicine Pulmonary Disease; ADMIT Family Medicine Adult Medicine; ATTEND Family Medicine Adult Medicine
PROC: 0B9G8ZX Drainage of Left Upper Lung Lobe, Via Natural or Artificial Opening Endoscopic, Diagnostic (ICD-10-PCS; 2018-10-05)
PROC: 0B9F8ZX Drainage of Right Lower Lung Lobe, Via Natural or Artificial Opening Endoscopic, Diagnostic (ICD-10-PCS; principal; 2018-10-05 13:00)
DX: J15.6 Pneumonia due to other Gram-negative bacteria (principal); J44.0 Chronic obstructive pulmonary disease with (acute) lower respiratory infection; F17.213 Nicotine dependence, cigarettes, with withdrawal; J98.11 Atelectasis; J44.1 Chronic obstructive pulmonary disease with (acute) exacerbation; T17.590A Other foreign object in bronchus causing asphyxiation, initial encounter; J20.9 Acute bronchitis, unspecified; I10 Essential (primary) hypertension; E78.5 Hyperlipidemia, unspecified; E11.9 Type 2 diabetes mellitus without complications; I48.91 Unspecified atrial fibrillation; G89.4 Chronic pain syndrome; K21.9 Gastro-esophageal reflux disease without esophagitis; E66.01 Morbid (severe) obesity due to excess calories; Z68.35 Body mass index [BMI] 35.0-35.9, adult; F32.9 Major depressive disorder, single episode, unspecified; I27.20 Pulmonary hypertension, unspecified; J98.09 Other diseases of bronchus, not elsewhere classified

== ENCOUNTER → 2019-01-17 13:29 | Outpatient (CLI) | payer MEDICARE ==
[2018-09-30 15:10] VITALS: BMI 39.4
[~2019-01-17 13:29] MED LIST changes: +FENOFIBRATE160 MG PO; +IPRAT-ALBUT 0.5-3 ML UPD; +LASIX20 MG PO; +MUCINEX600 MG PO; +TRAZODONE HCL150 MG PO; +XOPENEX 0.0.63 MG/3 UPD
== END | disposition home or self-care (01) ==
LOC: D.CT 01-10 14:30
PROVIDERS: ATTEND Internal Medicine Pulmonary Disease
DX: R93.89 Abnormal findings on diagnostic imaging of other specified body structures (principal)

== ENCOUNTER → 2019-07-05 11:28 | Outpatient (CLI) | payer MEDICARE ==
[2018-09-30 15:10] VITALS: BMI 39.4
== END | disposition home or self-care (01) ==
LOC: D.RAD 11:28
PROVIDERS: ATTEND Pain Medicine Interventional Pain Medicine
DX: M54.5 Low back pain (principal); M54.6 Pain in thoracic spine

== ENCOUNTER → 2019-09-12 12:49 | Outpatient (CLI) | payer MEDICARE ==
[2018-09-30 15:10] VITALS: BMI 39.4
== END | disposition home or self-care (01) ==
LOC: D.RAD 12:49
PROVIDERS: ATTEND Internal Medicine Pulmonary Disease
DX: J44.9 Chronic obstructive pulmonary disease, unspecified (principal)

== ENCOUNTER → 2019-09-20 11:11 | Outpatient (CLI) | payer MEDICARE ==
[2018-09-30 15:10] VITALS: BMI 39.4
== END | disposition home or self-care (01) ==
LOC: D.CT 11:11
PROVIDERS: ATTEND Clinical Nurse Specialist Family Health
DX: S42.202A Unspecified fracture of upper end of left humerus, initial encounter for closed fracture (principal)

== ENCOUNTER → 2019-09-29 19:49 | Outpatient (CLI) | payer MEDICARE ==
[2018-09-30 15:10] VITALS: BMI 39.4
== END | disposition home or self-care (01) ==
LOC: D.LABREF 19:49
PROVIDERS: ATTEND Internal Medicine Pulmonary Disease
DX: J20.9 Acute bronchitis, unspecified (principal)

== ENCOUNTER → 2019-10-04 13:10 | Outpatient (CLI) | payer MEDICARE ==
[2018-09-30 15:10] VITALS: BMI 39.4
== END | disposition home or self-care (01) ==
LOC: D.RAD 13:10
PROVIDERS: ATTEND Internal Medicine Pulmonary Disease
DX: J44.9 Chronic obstructive pulmonary disease, unspecified (principal)

== ENCOUNTER → 2019-10-12 18:22 | Outpatient (CLI) | payer MEDICARE ==
[2018-09-30 15:10] VITALS: BMI 39.4
== END | disposition home or self-care (01) ==
LOC: D.LABREF 18:22
PROVIDERS: ATTEND Orthopaedic Surgery
DX: M19.012 Primary osteoarthritis, left shoulder (principal)

== ENCOUNTER 2019-10-31 06:40 | Day surgery (SDC) | payer MEDICARE ==
[2019-10-28 13:40] LABS: ANION GAP 9.1 mmol/L (8-16); CALCIUM 8.5 mg/dL (8.5-10.1); CARBON DIOXIDE 30.7 mmol/L (21.0-32.0); POTASSIUM - SERUM 3.8 mmol/L (3.5-5.1)
[2019-10-28 13:43] LABS: INR 0.94 (0.85-1.17); PROTIME 12.5 SECONDS (11.6-15.0)
[2019-10-28 13:45] LABS: BASOPHILS 0.4 % (0-2); HEMATOCRIT 43.2 % (36.0-48.0); HEMOGLOBIN 14.4 g/dL (12-16); IMMATURE GRANULOCYTES 0.6 % (0-5); LYMPHOCYTES 20.6 % (15-50); MCH 31.5 pg (26.0-34.0); MCHC 33.3 g/dL (31.0-37.0); MCV 94.5 fL (80.0-100.0); MEAN PLATELET VOLUME 10.2 fL (7.4-10.4); MONOCYTES 6.2 % (2-11); NEUTROPHILS 69.2 % (40-80); RBC 4.57 10x6/uL (4.00-5.40); RDW 14.4 % (11.5-14.5); WBC 13.4 10x3/uL (4.8-10.8)
[2019-10-28 14:19] LABS: PLATELET COUNT 182 10x3/uL (130-400)
[2019-10-28 16:22] LABS: BILIRUBIN NEGATIVE (NEGATIVE); GLUCOSE NEGATIVE (NEGATIVE); KETONE NEGATIVE (NEGATIVE); NITRITE NEGATIVE (NEGATIVE); UROBILINOGEN NORMAL (NORMAL)
[~2019-10-31] VITALS: Ht 175.3 cm; Wt 96.6 kg
[~2019-10-31 06:40] MED LIST changes: +ADIPEX-P37.5 M1 PO; +KLOR-CON 1010 MEQ PO; +LEXAPRO5 MG PO; +METROGEL 0.75 %45 GM TOPICAL; +TERBINAFINE HC250 MG PO; +VENTOLIN HFA [SP8 GM INH
[2019-10-31 07:02] VITALS: BP 107/69; Ht 175.3 cm; Wt 96.6 kg
--- NOTE | 2019-10-31 07:40 | NUR ---
PROCEDURE CANCELLED PER DR. DELGADO/TAYA AFTER REVIEWING EKG.
--- NOTE | 2019-10-31 08:20 | NUR ---
PT PROCEDURE CANCELLED DUE TO ABNORMAL EKG CHANGES PER DR BAIN. EKGS FAXED TO DR [facility]. PT INFORMED THAT DR LEUNG OFFICE WILL CALL HER WITH FOLLOW UP APPT WITH CARDIOLOGY. PT AND FAMILY VERBALIZED UNDERSTANDING OF DC INSTRUCTIONS. IV REMOVED AT THIS TIME, INTACT, NO REDNESS OR SWELLING NOTED AT SITE. IV SITE DRESSED WITH GAUZE AT THIS TIME.
--- NOTE | 2019-10-31 08:30 | NUR ---
PT LEAVING OPS AT THIS TIME WITH FAMILY. PT OFFERED WHEELCHAIR, PT DECLINED WC AT THIS TIME. NAD NOTED.
--- NOTE | 2019-10-31 10:11 | NUR ---
EKG FAXED TO DR. DELGADO'S OFFICE, CONFIRMATION OF FAX RECEIVED.
== END 2019-10-31 08:30 | disposition home or self-care (01) ==
LOC: D.SDCHOLD 06:40 → D.OPS 06:40 → D.SDCHOLD 08:30 → EDSTATUS 08:30
PROVIDERS: ATTEND Orthopaedic Surgery
DX: M19.012 Primary osteoarthritis, left shoulder (principal); Z53.9 Procedure and treatment not carried out, unspecified reason; J44.9 Chronic obstructive pulmonary disease, unspecified; E11.9 Type 2 diabetes mellitus without complications; K21.9 Gastro-esophageal reflux disease without esophagitis; Z72.0 Tobacco use

== ENCOUNTER 2019-11-02 16:03 | Inpatient (IN) | payer MEDICARE ==
[~2019-11-02] VITALS: Ht 175.3 cm; Wt 96.8 kg
[2019-11-07] VITALS (13 sets, daily range): BP systolic 94–124; BP diastolic 52–71; Ht 175.3 cm; Wt 96.8 kg
[2019-11-07 08:13] LABS: ANION GAP 9.1 mmol/L (8-16); CALCIUM 8.8 mg/dL (8.5-10.1); CARBON DIOXIDE 30.9 mmol/L (21.0-32.0); CREATININE - SERUM 0.9 mg/dL (0.6-1.3)
[2019-11-07 08:39] LABS: BACTERIA FEW /hpf (NEGATIVE); BILIRUBIN NEGATIVE (NEGATIVE); EPITHELIAL CELLS OCC /hpf (0-5); GLUCOSE NEGATIVE (NEGATIVE); KETONE NEGATIVE (NEGATIVE); NITRITE NEGATIVE (NEGATIVE); RED CELLS - URINE OCC /hpf (0-5); UROBILINOGEN NORMAL (NORMAL); WHITE CELLS - URINE RARE /hpf (NEGATIVE)
[2019-11-07 08:40] LABS: HEMATOCRIT 45.8 % (36.0-48.0); HEMOGLOBIN 15.3 g/dL (12-16); LYMPHOCYTES 38.3 % (15-50); MCHC 33.4 g/dL (31.0-37.0); MCV 92.9 fL (80.0-100.0); MEAN PLATELET VOLUME 10.1 fL (7.4-10.4); NEUTROPHILS 53.2 % (40-80); PLATELET COUNT 205 10x3/uL (130-400); RBC 4.93 10x6/uL (4.00-5.40); RDW 14.2 % (11.5-14.5); WBC 7.5 10x3/uL (4.8-10.8)
[2019-11-07 08:41] LABS: INR 0.94 (0.85-1.17); PROTIME 12.6 SECONDS (11.6-15.0)
[2019-11-07 08:46] LABS: APTT 20.9 SECONDS (22.8-39.4)
--- NOTE | 2019-11-07 09:44 | NUR ---
0940 BLOCK WAS COMPLETED, DOSING, LAYING ON RIGHT SIDE. O2 4L NC MONITORS ON. DAUGHTER AT SIDE.
--- NOTE | 2019-11-07 11:37 | NUR ---
ICE APPLIED AND XRAY COMPLETED ORDERED.
--- NOTE | 2019-11-07 11:55 | NUR ---
PT RECEIVED TO ROOM 1210 VIA BED FROM RECOVERY. PT REMAINS GROGGY, BUT EASILY AROUSES TO VOICE. O2 @ 4L NC IN PLACE. RESP EVEN AND UNLABORED. DRESSING C/D/I TO LEFT SHOULDER, ICE PACK AND SLING IN PLACE. IV TO RIGHT FOREARM WITH LR @ 75ML/HR INFUSING VIA PUMP. SITE WITHOUT REDNESS OR EDEMA. ABLE TO MOVE FINGERS TO LEFT HAND, EXTREMITY WARM TO TOUCH, GOOD CAPILLARY REFILL. DENIES PAIN AT THIS TIME. ORIENTED TO ROOM, BED CONTROLS AND CL. EDUCATED REGARDING ISP. SCD'S ON BILATERALLY. BED ALARM ACTIVATED. DENIES QUESTIONS OR FURTHER NEEDS AT THIS TIME. CL WITHIN REACH. ENCOURAGED TO CALL WITH NEEDS. CONTINUE POC
--- NOTE | 2019-11-07 19:00 | NUR ---
REC'D REPORT. PATIENT RESTING IN BED WITH NO S/S OF DISTRESS. BED IN LOWEST POSITION, CL IN REACH, BED ALARM ON. PATIENT DENIES NEEDS AT THIS TIME. BED IN LOWEST POSITION AND CALL LIGHT WITHIN REACH. ENCOURAGED THE PATIENT TO CALL IF SHE HAS NEEDS. WILL CONTINUE TO MONITOR.
--- NOTE | 2019-11-07 21:12 | NUR ---
ADMINISTERED MEDS PER ORDERS. ASSESSMENT COMPLETED. ASSISTED PATIENT ON AND OFF BEDPAN. PATIENT DENIES OTHER NEEDS. ENCOURAGED TO CALL. WILL CONTINUE TO MONITOR.
[2019-11-08 00:03] VITALS: BP 97/54
[2019-11-08 04:00] VITALS: BP 96/61
[2019-11-08 05:29] VITALS: BP 108/62
--- NOTE | 2019-11-08 07:19 | NUR ---
PT RESTING QUIETLY IN BED. RESP EVEN AND UNLABORED. O2 @ 4L NC IN PLACE. PT REPORTS PAIN 3/10 AT THIS TIME. IV TO RIGHT FOREARM WITH 1/2 NS @ 75ML/HR INFUSING VIA PUMP. SITE WITHOUT REDNESS OR EDEMA. DRESSING TO LEFT SHOULDER, WITH OLD DRAINAGE NOTED TO ANTERIOR LOWER CHEST DRESSING. SCD'S IN PLACE. BED ALARM ACTIVE. DENIES FURTHER NEEDS AT THIS TIME. CL WITHIN REACH. ENCOURAGED TO CALL WITH NEEDS. CONTINUE POC
[2019-11-08 08:12] LABS: HEMATOCRIT 39.3 % (36.0-48.0); HEMOGLOBIN 13.1 g/dL (12-16); MCH 31.1 pg (26.0-34.0); MCHC 33.3 g/dL (31.0-37.0); MCV 93.3 fL (80.0-100.0); MEAN PLATELET VOLUME 10.2 fL (7.4-10.4); RBC 4.21 10x6/uL (4.00-5.40); RDW 13.6 % (11.5-14.5)
[2019-11-08 08:14] LABS: WBC 12.6 10x3/uL (4.8-10.8)
[2019-11-08 08:22] VITALS: BP 112/64
--- NOTE | 2019-11-08 09:15 | OP ---
PATIENT NAME: SANDRA LYNNE MEDICAL RECORD: [id number] :[birth year] LOCATION:D.M3 D.1210 ADMISSION DATE:11/07/19 SURGEON: VAMSI DELGADO MD DATE OF OPERATION: 11/07/2019 PREOPERATIVE DIAGNOSIS: Degenerative arthritis of the left shoulder. POSTOPERATIVE DIAGNOSIS: Degenerative arthritis of the left shoulder. PROCEDURE: Left total shoulder arthroplasty. SURGEON: Vamsi Delgado MD [employer] OPERATIONS MANAGER: LAMBERTO Tolliver INTRAOPERATIVE COMPLICATIONS: None. SUMMARY OF PATHOLOGIC FINDINGS: The patient was indeed found to have incongruity of the shoulder joint, status post ORIF for fracture that had continued to hurt and her CT scan showed incongruity as well as predicted. IMPLANTS USED: [employer] Aequalis performed with an Ascend Flex size 46 x 17 eccentric humeral head on a size small CortiLoc pegged glenoid. ESTIMATED BLOOD LOSS: 50 cc. OPERATIVE SUMMARY IN DETAIL: After obtaining the appropriate preoperative orthopedic surgery consent as well as anesthetic consultation, evaluation and clearance, the patient was brought to the operating room and placed on the operating table in supine position. After adequate general laryngeal mask airway was administered, the patient was placed in beach chair position. All pressure points were well padded. She was held firmly to the operating table using the vacuum pack suction system. Left upper extremity and shoulder were then prepped and draped in routine sterile fashion. At this point, the appropriate timeout was taken and agreed upon by all given the patient's unique identifiers. Previous utilized deltopectoral incision was utilized again. Cephalic vein was identified and protected throughout the case. Deltoid was gently retracted laterally while the conjoint tendon was retracted medially. Subscapularis was taken down and tagged for later reapproximation. The shoulder was then dislocated. The proximal humerus cut was made using the humeral cutting guide for the Ascend Flex system from [employer]. Serial and sequential reaming and broaching were done for a size 4. Size [address] was [address] into [address] with a cup protector locked on. The glenoid was then approached. Circumferential labrectomy was then followed by reaming for the size small CortiLoc glenoid, which did indeed filled the entire articular cavity. The trial was put into place after reaming and preparation and thought to have excellent fit and fill. Copious irrigation was then followed by cementing the CortiLoc humeral component down with all excess cement removed. At this point, attention was turned to the proximal humerus with the size as mentioned above were tamped into place and the shoulder was taken through range of motion, had appropriate posterior subluxation as well as appropriate range of motion. Wound was then irrigated and filled with a gram of vancomycin and gram of tobramycin. Subscapularis was then reapproximated with a biceps tenodesis in a transosseous fashion through the lesser tuberosity using #2 Ethibond. Having completed this, the wound was closed with #1 Vicryl, 2-0 Vicryl, and skin crista by Josh OPERATIVE REPORT [id number] SANDRA LYNNE FA. Sterile dressings were applied. The patient was awakened and taken to the recovery room in stable condition. All final needle and sponge counts were correct. TRANSINT:[id number] Voice Confirmation ID: [id number] DOCUMENT ID: [id number] SANDY STOUT, VAMSI GRACIA at 0915 CC: [id number] DICTATION DATE: 11/07/19 1101 PEDIGREE RESEARCHER: [birth year] ADM IN [facility] [address] [place] [address]
[2019-11-08] MEDS ORDERED: PERCOCET 10-321 EAC1 PO (10:13)
[2019-11-08] MEDS ORDERED: HYDROCODON-ACE1 EA10 PO (10:17)
[2019-11-08 11:05] VITALS: BP 106/58
--- NOTE | 2019-11-08 12:29 | NUR ---
IV DISCONTINUED TO RIGHT FOREARM, CATH INTACT. DRESSING PLACED TO SITE. DRESSING CHANGED TO LEFT SHOULDER CATHI INTACT SCANT SEROSANGEOUNOUS DRAINAGE NOTED TO BOTTOM OF INCISION. MEPILEX AG APPLIED. EDUCATED PT REGARDING D/C PAPERWORK, DISCUSSING NEW PRESCRIPTION, CONTINUATION OF HOME MEDICATIONS, S/S OF INFECTION AND FOLLOW UP APPOINTMENT. DENIES QUESTIONS OR CONCERNS AT THIS TIME. ASSISTED PT WITH DRESSING. PT TAKEN OUT VIA W/C TO PRIVATE VEHICLE WITH ALL PERSONAL POSESSIONS
== END 2019-11-08 12:39 | disposition home or self-care (01) | DRG 483 ==
LOC: D.SDCHOLD 11-07 07:23 → D.M3 11-07 11:38 → D.SDCHOLD 11-07 12:00 → D.M3 11-08 12:39
PROVIDERS: ADMIT Orthopaedic Surgery; ATTEND Orthopaedic Surgery
PROC: 0RRK0JZ Replacement of Left Shoulder Joint with Synthetic Substitute, Open Approach (ICD-10-PCS; principal; 2019-11-07 09:30)
DX: M19.012 Primary osteoarthritis, left shoulder (principal); J44.9 Chronic obstructive pulmonary disease, unspecified; K21.9 Gastro-esophageal reflux disease without esophagitis; E11.9 Type 2 diabetes mellitus without complications

== ENCOUNTER → 2019-12-02 12:22 | Outpatient (CLI) | payer MEDICARE ==
[2019-11-07 12:21] VITALS: BMI 31.5
[~2019-12-02 12:22] MED LIST changes: +PERCOCET 10-321 EAC1 PO
== END | disposition home or self-care (01) ==
LOC: D.LAB 12:22
PROVIDERS: ATTEND Internal Medicine Pulmonary Disease
DX: Z11.59 Encounter for screening for other viral diseases (principal)

== ENCOUNTER → 2019-12-05 13:51 | Outpatient (CLI) | payer MEDICARE ==
[2019-11-07 12:21] VITALS: BMI 31.5
== END | disposition home or self-care (01) ==
LOC: D.RT 13:00
PROVIDERS: ATTEND Internal Medicine Pulmonary Disease
DX: J44.9 Chronic obstructive pulmonary disease, unspecified (principal); R93.89 Abnormal findings on diagnostic imaging of other specified body structures

== ENCOUNTER → 2019-12-16 10:45 | Outpatient (CLI) | payer MEDICARE ==
[2019-11-07 12:21] VITALS: BMI 31.5
[2019-12-16 11:26] LABS: BASOPHILS 0.1 % (0-2); EOSINOPHILS 0.7 % (0-7); HEMATOCRIT 44.5 % (36.0-48.0); HEMOGLOBIN 14.5 g/dL (12-16); IMMATURE GRANULOCYTES 0.7 % (0-5); MCH 30.7 pg (26.0-34.0); MCHC 32.6 g/dL (31.0-37.0); MCV 94.3 fL (80.0-100.0); MEAN PLATELET VOLUME 9.7 fL (7.4-10.4); MONOCYTES 7.4 % (2-11); NEUTROPHILS 69.1 % (40-80); RBC 4.72 10x6/uL (4.00-5.40); RDW 14.7 % (11.5-14.5); WBC 15.2 10x3/uL (4.8-10.8)
[2019-12-16 11:40] LABS: PLATELET COUNT 236 10x3/uL (130-400)
[2019-12-16 11:46] LABS: ALBUMIN 3.6 g/dL (3.4-5.0); ANION GAP 9.7 mmol/L (8-16); BILIRUBIN - TOTAL 0.17 mg/dL (0.2-1.3); CALCIUM 9.1 mg/dL (8.5-10.1); CREATININE - SERUM 0.9 mg/dL (0.6-1.3); POTASSIUM - SERUM 3.7 mmol/L (3.5-5.1); PROTEIN - SERUM 6.9 g/dL (6.4-8.2)
== END | disposition home or self-care (01) ==
LOC: D.RAD 10:00 → D.LAB 10:00 → D.RAD 10:15 → D.RT 10:45 → D.LAB 10:45
PROVIDERS: ATTEND Internal Medicine Pulmonary Disease
DX: J44.1 Chronic obstructive pulmonary disease with (acute) exacerbation (principal)

== ENCOUNTER 2019-12-31 12:11 | Emergency (ER) | payer MEDICARE ==
[~2019-12-31] VITALS: Ht 175.3 cm; Wt 97.7 kg
[2019-12-31 12:22] VITALS: Ht 175.3 cm; Wt 97.7 kg
[2019-12-31 12:37] VITALS: BP 130/76
== END 2019-12-31 12:37 | disposition home or self-care (01) ==
LOC: D.ER 12:11
DX: Z11.59 Encounter for screening for other viral diseases (principal); J44.9 Chronic obstructive pulmonary disease, unspecified; K21.9 Gastro-esophageal reflux disease without esophagitis; Z72.0 Tobacco use

== ENCOUNTER 2020-01-04 08:51 | Outpatient (CLI) | payer MEDICARE ==
[~2020-01-04] VITALS: Ht 175.3 cm; Wt 100.0 kg
[2020-01-04 09:43] LABS: BASOPHILS 0.9 % (0-2); EOSINOPHILS 3.8 % (0-7); HEMOGLOBIN 15.1 g/dL (12-16); IMMATURE GRANULOCYTES 1.8 % (0-5); LYMPHOCYTES 26.1 % (15-50); MCH 31.6 pg (26.0-34.0); MCHC 33.6 g/dL (31.0-37.0); MCV 94.1 fL (80.0-100.0); MEAN PLATELET VOLUME 11.1 fL (7.4-10.4); MONOCYTES 7.7 % (2-11); NEUTROPHILS 59.7 % (40-80); RBC 4.78 10x6/uL (4.00-5.40); RDW 14.7 % (11.5-14.5); WBC 9.2 10x3/uL (4.8-10.8)
[2020-01-04 09:44] LABS: PLATELET COUNT 173 10x3/uL (130-400)
[2020-01-04 09:47] VITALS: BP 110/68; Ht 175.3 cm; Wt 100.0 kg
[2020-01-04 09:51] LABS: APTT 28.6 SECONDS (22.8-39.4); INR 0.99 (0.85-1.17)
--- NOTE | 2020-01-04 13:54 | NUR ---
1345 IV REMOVED AND PRESSURE HELD. INSTRUCTIONS GIVEN TO PT AND FAMILY. O2 SAT 94 ON RA. PT INSTRUCTED TO USE O2 AT HOME AND TAKE BREATHING TXS TONIGHT AND SIT UP IN BED
[2020-01-05 17:09] LABS: ACID FAST SMEAR Negative (()); AFB SPECIMEN PROCESSING Concentration (())
[2020-01-06 13:11] LABS: FUNGUS STAIN Final report (())
== END 2020-01-04 13:50 | disposition home or self-care (01) ==
LOC: D.OPS 08:51
PROVIDERS: ATTEND Internal Medicine Pulmonary Disease
DX: Z13.9 Encounter for screening, unspecified (principal); J20.9 Acute bronchitis, unspecified; E11.9 Type 2 diabetes mellitus without complications; I10 Essential (primary) hypertension; I48.91 Unspecified atrial fibrillation; J44.9 Chronic obstructive pulmonary disease, unspecified; R05 Cough; K21.9 Gastro-esophageal reflux disease without esophagitis; R93.89 Abnormal findings on diagnostic imaging of other specified body structures; J95.851 Ventilator associated pneumonia; R94.2 Abnormal results of pulmonary function studies; M41.9 Scoliosis, unspecified; J30.2 Other seasonal allergic rhinitis; F17.290 Nicotine dependence, other tobacco product, uncomplicated; J98.09 Other diseases of bronchus, not elsewhere classified; G47.33 Obstructive sleep apnea (adult) (pediatric); J96.11 Chronic respiratory failure with hypoxia; B37.0 Candidal stomatitis